=== PATIENT | male | born 1925 | race Caucasian/White ===

== ENCOUNTER → 2016-03-17 | Outpatient (CLI) | payer MEDICARE ==
--- NOTE | 2016-03-17 14:24 | CT ---
EXAMINATION TYPE: CT abdomen pelvis wo con DATE OF EXAM: 03/17/2016 2:08 PM COMPARISON: 01/02/2016 HISTORY: Patient has no complaints at time of study. Follow up study for known pancreatic CA. CT DLP: 384.7 mGycm FINDINGS: LUNG BASES: Moderate right-sided pleural effusion with small left-sided pleural effusion. Groundglass basilar infiltrates. LIVER/GB: Gallbladder hydrops noted measuring 9.3 cm in greatest dimension. No space-occupying hepati c lesion. PANCREAS: Pancreatic mass like area in the pancreatic body and measures 3.2 cm. Lack of contrast limi ts evaluation. SPLEEN: No evidence for splenomegaly. No intrasplenic lesions seen. ADRENALS: No adrenal nodules identified. No evidence for thickening. KIDNEYS: No evidence for renal mass. No nephrolithiasis. No hydronephrosis. Thickening of the urinary bladder wall may be related to nondistention. BOWEL: Appendix has a normal appearance. No evidence of bowel obstruction. No inflammatory process. S mall fixed hiatal hernia. Sigmoid diverticulosis and colitis. Lymph nodes: Periportal adenopathy identified 1.9 cm. Abdominal aorta: Atheromatous changes seen. No evidence for aneurysm. Genital organs: Prostate gland calcifications seen. Other: No significant abnormality. IMPRESSION: 1. PANCREATIC BODY MASS IS IDENTIFIED COMPATIBLE WITH PROVIDED HISTORY OF PANCREATIC CARCINOMA. 2. GALLBLADDER HYDROPS. 3. PERIPORTAL ADENOPATHY. 4. BASILAR PLEURAL EFFUSIONS AND ATELECTASIS.
== END | disposition home or self-care (01) ==
LOC: RADCTMAIN 11:23
PROVIDERS: ATTEND Internal Medicine Hematology & Oncology
DX: C25.9 Malignant neoplasm of pancreas, unspecified (principal); K86.89 Other specified diseases of pancreas; K82.1 Hydrops of gallbladder; R59.0 Localized enlarged lymph nodes
CPT/HCPCS: 36415; 74176; 82565; 84520

== ENCOUNTER 2016-03-19 15:47 | Inpatient (IN) | payer MEDICARE ==
--- NOTE | 2016-03-19 18:57 | ED ---
General Adult HPI - General Source: patient, family, RN notes reviewed Mode of arrival: wheelchair Limitations: physical limitation <Satish Wilkinson - Last Filed: 03/19/16 21:06> <Soto Grant - Last Filed: 03/19/16 21:19> - General Chief complaint: Fall Stated complaint: Fall 1 wk ago Time Seen by Provider: 03/19/16 18:40 - History of Present Illness Initial comments: 89-year-old male presents emergency Department chief complaint weakness. Patient states that he fell out of a chair one week ago and which she is on a swivel chair fell onto his side and back region. He does complain of back pain in his mid to low back region. Patient denies any bowel bladder incontinence or retention. Patient states that he has not had any x-rays for this. He states he comes today because his had increased weakness and lower extremity swelling. Patient states he is having a large rock difficulty ambulating with denies any chest pain or increased shortness breath this time. Patient's Lasix has been cut in half secondary to elevated renal function. Patient states that he was taken 80 mg of Lasix twice daily and states is down to 40 mg once daily and has noticed extreme swelling to his lower extremities. Patient states he hadn't NE at [facility] of last year. states he sees Dr. llanos cardiology. Patient denies any headache, head injury or any LOC. Patient has no abdominal pain including nausea vomiting. (Satish Wilkinson) - Related Data Home Medications Medication Instructions Recorded Confirmed Atenolol [Tenormin] 25 mg PO BID 05/18/15 03/19/16 Atorvastatin [Lipitor] 10 mg PO HS 05/18/15 03/19/16 Donepezil [Aricept] 5 mg PO HS 05/18/15 03/19/16 L.acidoph,Paracasei, B.lactis 1 cap PO DAILY 05/18/15 03/19/16 [Probiotic] Montelukast Sodium [Singulair] 10 mg PO DAILY 05/18/15 03/19/16 Aspirin [Adult Low Dose Aspirin EC] 81 mg PO DAILY 03/19/16 03/19/16 Esomeprazole Magnesium [NexIUM] 20 mg PO DAILY 03/19/16 03/19/16 Furosemide [Lasix] 40 mg PO DAILY 03/19/16 03/19/16 Isosorbide Mononitrate ER [Imdur] 30 mg PO DAILY 03/19/16 03/19/16 Loratadine [Claritin] 10 mg PO DAILY 03/19/16 03/19/16 Multivitamin [Multivitamins Adult 2 tab PO DAILY 03/19/16 03/19/16 Gummies] Potassium Chloride [Klor-Con 20] 20 meq PO BID 03/19/16 03/19/16 Allergies Allergy/AdvReac Type Severity Reaction Status Date / Time acetaminophen [From Tylenol] Allergy Unknown Verified 03/19/16 19:13 Milk Containing Products Allergy Dyspnea,jose Verified 03/19/16 19:13 [Dairy] rrhea nut - unspecified Allergy Unknown Verified 03/19/16 19:13 peanut Allergy Dyspnea Verified 03/19/16 19:13 tomato Allergy Unknown Verified 03/19/16 19:13 seeds Allergy Unknown Uncoded 03/19/16 16:22 Review of Systems ROS Other: All systems not noted in ROS Statement are negative. <Satish Wilkinson - Last Filed: 03/19/16 21:06> ROS Other: All systems not noted in ROS Statement are negative. <Soto Grant - Last Filed: 03/19/16 21:19> ROS Statement: Those systems with pertinent positive or pertinent negative responses have been documented in the HPI. Past Medical History Past Medical History: Eye Disorder, GERD/Reflux, Hyperlipidemia, Hypertension Additional Past Medical History / Comment(s): "continuous stomach for last 2-3 weeks", "persistent heart burn and chest discomfort with certain foods", states "seeing red globs in the toilet with stools",having a weak urine stream,having increased fatigue,diarrhea,wet macular degeneration rt eye,"borderline diabetes " History of Any Multi-Drug Resistant Organisms: None Reported Past Surgical History: Bowel Resection, Joint Replacement Additional Past Surgical History / Comment(s): lt knee replacement Past Anesthesia/Blood Transfusion Reactions: No Reported Reaction Smoking Status: Former smoker Past Alcohol Use History: None Reported Additional Past Alcohol Use History / Comment(s): quit smoking 1977,started smoking 6 <1ppd and pipe Past Drug Use History: None Reported - Past Family History Mother Family Medical History: No Reported History Additional Family Medical History / Comment(s): at 96 Father Additional Family Medical History / Comment(s): at age 80 <CmSatish pandya - Last Filed: 03/19/16 21:06> General Exam Limitations: physical limitation General appearance: alert, in no apparent distress Neck exam: Present: normal inspection, full ROM. Absent: tenderness, meningismus, lymphadenopathy Respiratory exam: Present: normal lung sounds bilaterally. Absent: respiratory distress, wheezes, rales, rhonchi, stridor Cardiovascular Exam: Present: regular rate, normal rhythm, normal heart sounds. Absent: systolic murmur, diastolic murmur, rubs, gallop, clicks GI/Abdominal exam: Present: soft, normal bowel sounds. Absent: distended, tenderness, guarding, rebound, rigid Extremities exam: Present: other (Bilateral lower extremity swelling 3+ pitting edema pulses equal bilaterally patient has equal strength 4/5) Back exam: Present: full ROM, tenderness (Mild tenderness lower thoracic, lumbar region), vertebral tenderness. Absent: paraspinal tenderness Neurological exam: Present: alert, oriented X3, CN II-XII intact, reflexes normal. Absent: motor sensory deficit Skin exam: Present: warm, dry, intact, normal color. Absent: rash <Satish Wilkinson - Last Filed: 03/19/16 21:06> Medical Decision Making - Lab Data Result diagrams: 03/19/16 19:05 03/19/16 19:05 <Satish Wilkinson - Last Filed: 03/19/16 21:06> - Lab Data Result diagrams: 03/19/16 19:05 03/19/16 19:05 <Soto Grant - Last Filed: 03/19/16 21:19> - Medical Decision Making I discussed the case with the patient's attending, Dr. Bose. Patient be admitted to his practice. He recommends IV fluids at 50 per hour. With consultation from jailer chief Dr. Pickard. Labs chest x-ray all current reports were reviewed. Dr. Grant (Soto Grant) - Lab Data Lab Results 03/19/16 03/19/16 03/19/16 Range/Units 19:05 19:05 19:05 WBC 5.4 (3.8-10.6) k/uL RBC 3.31 L (4.30-5.90) m/uL Hgb 11.1 L (13.0-17.5) gm/dL Hct 34.8 L (39.0-53.0) % MCV 105.1 H (80.0-100.0) fL MCH 33.4 (25.0-35.0) pg MCHC 31.8 (31.0-37.0) g/dL RDW 20.8 H (11.5-15.5) % Plt Count 184 (150-450) k/uL Neutrophils % 81 % Lymphocytes % 6 % Monocytes % 9 % Eosinophils % 1 % Basophils % 0 % Neutrophils # 4.4 (1.3-7.7) k/uL Lymphocytes # 0.3 L (1.0-4.8) k/uL Monocytes # 0.5 (0-1.0) k/uL Eosinophils # 0.0 (0-0.7) k/uL Basophils # 0.0 (0-0.2) k/uL Manual Slide Review Performed Polychromasia Present Anisocytosis Moderate Anisocytosis (manual) Present Macrocytosis Marked Sodium 132 L (137-145) mmol/L Potassium 4.9 (3.5-5.1) mmol/L Chloride 100 (98-107) mmol/L Carbon Dioxide 21 L (22-30) mmol/L Anion Gap 11 mmol/L BUN 96 H* (9-20) mg/dL Creatinine 2.20 H (0.66-1.25) mg/dL Est GFR (MDRD) Af Amer 34 (>60 ml/min/1.73 sqM) Est GFR (MDRD) Non-Af 28 (>60 ml/min/1.73 sqM) Glucose 83 (74-99) mg/dL Calcium 8.4 (8.4-10.2) mg/dL Total Bilirubin 1.2 (0.2-1.3) mg/dL AST 49 (17-59) U/L ALT 52 (21-72) U/L Alkaline Phosphatase 63 (38-126) U/L Troponin I (0.000-0.034) ng/mL NT-Pro-B Natriuret Pep 31832 pg/mL Total Protein 5.2 L (6.3-8.2) g/dL Albumin 2.9 L (3.5-5.0) g/dL Urine Color Urine Appearance (Clear) Urine pH (5.0-8.0) Ur Specific [place] (1.001-1.035) Urine Protein (Negative) Urine Glucose (UA) (Negative) Urine Ketones (Negative) Urine Blood (Negative) Urine Nitrate (Negative) Urine Bilirubin (Negative) Urine Urobilinogen (<2.0) mg/dL Ur Leukocyte Esterase (Negative) 03/19/16 03/19/16 Range/Units 19:05 20:25 WBC (3.8-10.6) k/uL RBC (4.30-5.90) m/uL Hgb (13.0-17.5) gm/dL Hct (39.0-53.0) % MCV (80.0-100.0) fL MCH (25.0-35.0) pg MCHC (31.0-37.0) g/dL RDW (11.5-15.5) % Plt Count (150-450) k/uL Neutrophils % % Lymphocytes % % Monocytes % % Eosinophils % % Basophils % % Neutrophils # (1.3-7.7) k/uL Lymphocytes # (1.0-4.8) k/uL Monocytes # (0-1.0) k/uL Eosinophils # (0-0.7) k/uL Basophils # (0-0.2) k/uL Manual Slide Review Polychromasia Anisocytosis Anisocytosis (manual) Macrocytosis Sodium (137-145) mmol/L Potassium (3.5-5.1) mmol/L Chloride (98-107) mmol/L Carbon Dioxide (22-30) mmol/L Anion Gap mmol/L BUN (9-20) mg/dL Creatinine (0.66-1.25) mg/dL Est GFR (MDRD) Af Amer (>60 ml/min/1.73 sqM) Est GFR (MDRD) Non-Af (>60 ml/min/1.73 sqM) Glucose (74-99) mg/dL Calcium (8.4-10.2) mg/dL Total Bilirubin (0.2-1.3) mg/dL AST (17-59) U/L ALT (21-72) U/L Alkaline Phosphatase (38-126) U/L Troponin I 0.021 (0.000-0.034) ng/mL NT-Pro-B Natriuret Pep pg/mL Total Protein (6.3-8.2) g/dL Albumin (3.5-5.0) g/dL Urine Color Yellow Urine Appearance Clear (Clear) Urine pH 5.0 (5.0-8.0) Ur Specific [place] 1.011 (1.001-1.035) Urine Protein Trace H (Negative) Urine Glucose (UA) Negative (Negative) Urine Ketones Trace H (Negative) Urine Blood Negative (Negative) Urine Nitrate Negative (Negative) Urine Bilirubin Negative (Negative) Urine Urobilinogen 2.0 (<2.0) mg/dL Ur Leukocyte Esterase Negative (Negative) Disposition <Satish Wilkinson - Last Filed: 03/19/16 21:06> <Soto Grant - Last Filed: 03/19/16 21:19> Clinical Impression: CHF exacerbation, Bilateral lower extremity edema, Dehydration, Pancreatic cancer, Pleural effusion Disposition: ADMITTED IP TO THIS [facility] Condition: Stable Referrals: Shawna Maza MD [Primary Care Provider] - 1-2 days Addendum entered and electronically signed by Satish Wilkinson PAC 03/19/16 21:12 : EKG performed at 19:19 A. fib left axis deviation rate of 98 QRS duration 96, QT /QTC 340/444 no prior EKG on record though patient reports history of A. fib
[2016-03-19 19:20] LABS: Anisocytosis Moderate; Basophils % (A) 0 %; CH 33.4; CHCM 31.9; Eosinophils % (A) 1 %; HCT 34.8 % (39.0-53.0); HDW 2.54; HGB 11.1 gm/dL (13.0-17.5); Luc # (Auto) 0.18; Luc % (Auto) 3; Lymphocytes # (A) 0.3 k/uL (1.0-4.8); Lymphocytes % (A) 6 %; MCH 33.4 pg (25.0-35.0); MCHC 31.8 g/dL (31.0-37.0); MCV 105.1 fL (80.0-100.0); Macrocytosis Marked; Mean Platelet Volume 8.1; Monocytes # (A) 0.5 k/uL (0-1.0); Monocytes % (A) 9 %; Neutrophils # (A) 4.4 k/uL (1.3-7.7); Neutrophils % (A) 81 %; RBC 3.31 m/uL (4.30-5.90); RDW 20.8 % (11.5-15.5); WBC 5.4 k/uL (3.8-10.6)
[2016-03-19 19:35] LABS: Calcium 8.4 mg/dL (8.4-10.2); Potassium 4.9 mmol/L (3.5-5.1); Total Bilirubin 1.2 mg/dL (0.2-1.3); Total Protein 5.2 g/dL (6.3-8.2)
[2016-03-19 19:38] LABS: Polychromasia Present
[2016-03-19 19:39] LABS: Manual Review Performed
--- NOTE | 2016-03-19 20:20 | XR ---
EXAMINATION TYPE: XR chest 2V DATE OF EXAM: 03/19/2016 8:12 PM COMPARISON: NONE HISTORY: Back pain TECHNIQUE: Frontal and lateral views of the chest are obtained. FINDINGS: Heart is enlarged. There is pulmonary vascular congestion. There is blunting of costophren ic angles. Thoracic aorta is atheromatous. IMPRESSION: Congestive heart failure with bilateral pleural effusions. Right lower lobe pneumonia ca nnot be excluded.
--- NOTE | 2016-03-19 20:23 | XR ---
EXAMINATION TYPE: XR lumbar spine 2 or 3V DATE OF EXAM: 03/19/2016 8:12 PM COMPARISON: NONE HISTORY: Back pain TECHNIQUE: 3 views FINDINGS: There is a slight dextroscoliosis. There is a 25% compression deformity of L1 vertebral body. The po sterior elements appear intact. Sacroiliac joints are normal. There is degenerative spurring of the e ndplates. Abdominal aorta is atheromatous. Conclusion L1 compression fracture of uncertain age. Spondylotic changes. Fractures unchanged compared to 2015 CT scan.
--- NOTE | 2016-03-19 20:43 | XR ---
EXAMINATION TYPE: XR thoracic spine 2V DATE OF EXAM: 03/19/2016 8:32 PM COMPARISON: NONE HISTORY: Back pain TECHNIQUE: 3 views FINDINGS: The thoracic vertebra have normal alignment. I see no compression fracture. There is no def inite paraspinal mass. There is right pleural effusion noted. Posterior elements are intact. There ar e spondylotic changes. IMPRESSION: No fracture. Right pleural effusion. There is possible pneumonic consolidation at the rig ht cardiac border.
[2016-03-19 21:03] LABS: Appearance,Urine Clear (Clear); Bilirubin,Urine Negative (Negative); Glucose,Urine (UA) Negative (Negative); Ketones,Urine Trace (Negative); Leukocyte Esterase,Urine Negative (Negative); Nitrite,Urine Negative (Negative); Protein,Urine Trace (Negative); Specific Gravity,Urine 1.011 (1.001-1.035); UA Billing (MACRO vs. MICRO) CHEM
[2016-03-19] MEDS ORDERED: SODIUM CHLORIDE 0.9% 1,000 ML IV SCH (21:15)
[2016-03-20] MEDS ORDERED: PROCHLORPERAZINE 10 MG TAB PO PRN (01:25)
[2016-03-20] MEDS ORDERED: ATENOLOL 25 MG TAB PO SCH (09:00)
[2016-03-20] MEDS: ASPIRIN 81 MG CHEW PO SCH (09:07)
[2016-03-20] MEDS: MONTELUKAST 10 MG TAB PO SCH (09:08)
[2016-03-20] MEDS: PANTOPRAZOLE 40 MG TABLET PO SCH (09:08)
[2016-03-20] MEDS: ISOSORBIDE MONONITRATE ER 30 MG TAB.ER.24H PO SCH (09:08)
[2016-03-20] MEDS ORDERED: POTASSIUM CHLORIDE ER 20 MEQ TAB.ER PO SCH (11:15)
[2016-03-20] MEDS ORDERED: FUROSEMIDE 40 MG TAB PO SCH (11:15)
[2016-03-20] MEDS ORDERED: ATENOLOL 12.5 MG TAB PO SCH (13:15)
--- NOTE | 2016-03-20 14:44 | CONS ---
DATE OF CONSULTATION: 03/20/2016 Reason for consult is renal failure. HISTORY OF PRESENT ILLNESS: This is an 89-year-old white male who was admitted to the hospital with complaints of weakness. He has also had some back pain. He stated he was having increased lower extremity edema. Serum creatinine is noted to be 2.2 mg/dL on admission. Prior creatinine was as low as 1.3 in October and 1.5 in December of 2015. Blood pressure has been on the lower side with systolic at about 109 mmHg. Patient denies the use of any nonsteroidal anti-inflammatory agents at home and his home medications do not use any FLO inhibitors. PAST MEDICAL HISTORY: Gastroesophageal reflux disease, hyperlipidemia, hypertension, macular degeneration, osteoarthritis. PAST SURGICAL HISTORY: Left knee arthroplasty, bowel resection. Social history is patient is an ex-smoker. No history of drug abuse or alcohol abuse. REVIEW OF SYSTEMS: As per HPI. Other systems negative. Medications at home included potassium, Claritin, Imdur, Lasix, Nexium, Singulair, probiotics, Aricept, Lipitor, Tenormin. On examination, patient is currently comfortable, awake, he is not in any acute distress. Blood pressure is 107/69, heart rate 96 per minute. Patient is afebrile. Examination of the heart, S1 and S2. Examination of the lungs, bilateral breath sounds are heard. Abdomen is soft, nontender. Examination of lower extremities shows edema 1+ bilaterally. Labs show sodium 132, potassium 4.9, BUN 96, serum creatinine 2.2. Hemoglobin 11.1 g/dL. UA shows trace protein and trace ketones. No blood is noted. Chest x-ray showed evidence of CHF. ASSESSMENT: 1. Renal failure which appears to be acute on top of chronic, most likely associated with some degree of hypoperfusion, as blood pressure has been on the lower side. Patient is maintained on Tenormin at home and I will decrease the dose from 25 b.i.d. to 12.5 once a day. UA is quite benign and I will hold off on an ultrasound of the kidney as patient did have a CT of the abdomen on 03/17/2016, which did not show any abnormalities in the kidneys. A pancreatic mass was noted on the CAT scan. 2. Chronic kidney disease, most likely secondary to nephrosclerosis, NKF stage III, with baseline creatinine about 1.3 mg/dL. 3. Pancreatic mass with history of pancreatic cancer. PLAN: Hep-Lock IV fluids and will continue with the oral Lasix. I will give one dose of IV Lasix today and repeat labs in a.m. Thank you for this consultation. Will continue to follow the patient with you during his hospitalization.
[2016-03-20] MEDS ORDERED: IPRATROPIUM-ALBUTEROL 3 ML NEB INHALATION PRN (15:06)
--- NOTE | 2016-03-20 18:37 | P.HPIM ---
History of Present Illness H&P Date: 03/20/16 Chief Complaint: Acute systolic heart failure/acute kidney injury. This is an 89-year-old male one of my patient with a previous medical history significant for hypertension and hypertensive cardio vascular disease, hyperkalemia, history of prostate cancer in the past, that was diagnosed a few years back underwent radiation therapy at [facility], has been in remission and was recently diagnosed on June 2015 of having locally advanced pancreatic cancer that has been under the care of Dr. Beavers for which she did receive about 7 cycles of Gemzar, patient was recently hospitalized at [facility] because of chest pain and increased shortness breath he was diagnosed with non-ST elevation MS and paroxysmal atrial fibrillation, at that time he was placed on atenolol 25 mg orally twice every day as well as aspirin and he was placed on heparin drip and the patient prognosis is poor so he did not go for any invasive procedure due to his advanced pancreatic cancer. Patient was discharged and he followed up with Dr. Celis as a matter of fact today and the patient ended up coming to the emergency department because of increased weakness in both lower x-rays and increased shortness of breath, patient had a chest x-ray in the ER that showed congestive heart failure and he does appear to have a significant acute kidney injury and top of chronic kidney disease and the patient legs were +4 pitting edema. Patient was admitted to the hospital initially was placed on the normal saline at 50 mL an hour for few hours and subsequently was taken off that and he was placed on Lasix 40 mg orally once every day he will also was started on Lasix 40 mg IV push 1 and a nephrology consultation as well as hematology oncology consultation was obtained. Review of Systems Constitutional: Reports anorexia, Reports fatigue, Reports lethargy, Reports malaise, Reports night sweats, Reports poor appetite, Reports weakness, Reports weight loss Eyes: bilateral blurred vision Ears: bilateral: decreased hearing Ears, nose, mouth and throat: Denies dysphagia, Denies neck lump, Denies swelling in throat, Denies sore throat Cardiovascular: Reports decreased exercise tolerance, Reports dyspnea on exertion, Reports edema, Reports high blood pressure, Reports irregular heart beat, Reports orthopnea, Reports paroxysmal nocturnal dyspnea, Reports shortness of breath, Denies chest pain Respiratory: Reports congestion, Reports cough with sputum, Reports dyspnea, Reports wheezing, Denies sleep apnea, Denies snoring Gastrointestinal: Reports bloating, Reports diarrhea, Reports heartburn, Reports indigestion, Reports nausea, Denies abdominal pain, Denies BRBPR, Denies change in bowel habits, Denies vomiting Genitourinary: Reports nocturia, Reports polyuria, Denies dysuria Musculoskeletal: Reports gait dysfunction, Reports low back pain, Denies myalgias Musculoskeletal: bilateral: ankle swelling, absent: ankle pain, ankle stiffness , elbow pain, elbow stiffness, elbow swelling, foot pain, foot stiffness, foot swelling, hand pain, hand stiffness, hand swelling, hip pain, hip stiffness, hip swelling, knee pain, knee stiffness, knee swelling, shoulder pain, shoulder stiffness, shoulder swelling, wrist pain, wrist stiffness, wrist swelling Integumentary: Denies pruritus, Denies rash Neurological: Denies numbness, Denies weakness Psychiatric: Denies anxiety, Denies depression Endocrine: Denies fatigue, Denies weight change Past Medical History Past Medical History: Atrial Fibrillation, Coronary Artery Disease (CAD), Cancer , Heart Failure, Dementia, Diabetes Mellitus, Eye Disorder, GERD/Reflux, Hyperlipidemia, Hypertension, Memory Impairment, Myocardial Infarction (MS), Musculoskeletal Disorder, Osteoarthritis (OA), Prostate Disorder, Renal Disease (Chronic kidney disease stage II.) Additional Past Medical History / Comment(s): "continuous stomach for last 2-3 weeks", "persistent heart burn and chest discomfort with certain foods", states "seeing red globs in the toilet with stools",having a weak urine stream,having increased fatigue,diarrhea,wet macular degeneration rt eye,"borderline diabetes ". pancreatic CA (last chemo 03/13/2016), prostate CA 09/2012(radiation), vascular dementia Last Myocardial Infarction Date:: 01/11/2016 History of Any Multi-Drug Resistant Organisms: None Reported Past Surgical History: Bowel Resection, Joint Replacement Additional Past Surgical History / Comment(s): lt knee replacement, bilat cataracts, TURP-1994, prostate radiation, small bowel obstruction with exploratory laparotomy and lysis of adhesion. Past Anesthesia/Blood Transfusion Reactions: No Reported Reaction Past Psychological History: Anxiety, Depression Smoking Status: Former smoker (Patient used to smoke about a pack every day for about 35 years and he quit in 1981, he drinks occasionally he denies any drug use or abuse. He is lives by himself and his from liver cancer.) Past Alcohol Use History: None Reported Additional Past Alcohol Use History / Comment(s): quit smoking 1977,started smoking 1946 <1ppd and pipe Past Drug Use History: None Reported - Past Family History Mother Family Medical History: Osteoarthritis (OA) (Mother at age 98 from old age. ) Additional Family Medical History / Comment(s): cataracts. at 98 Father Family Medical History: Congestive Heart Failure (CHF) (Father at age of 82 from congestive heart failure.), CVA/TIA Additional Family Medical History / Comment(s): at age 80 Brother(s) Family Medical History: Congestive Heart Failure (CHF), COPD (Patient had 5 brothers one from congestive heart failure, the other one from COPD, the third one at the age of 92 from old age, the fourth 1 from congestive heart failure at the age of 83-1/4 brother from old age.) Sister(s) Family Medical History: No Reported History (Patient had 2 sisters one of them is alive and 93-year-old and the other one in [place] at the age of 80) Daughter(s) Family Medical History: No Reported History (Patient had 2 daughters one of them early due to suicidal attempt and had 2 kids the other one living and well.) Medications and Allergies Home Medications Medication Instructions Recorded Confirmed Type Atenolol [Tenormin] 25 mg PO BID 05/18/15 03/19/16 History Atorvastatin [Lipitor] 10 mg PO HS 05/18/15 03/19/16 History Donepezil [Aricept] 5 mg PO HS 05/18/15 03/19/16 History L.acidoph,Paracasei, B.lactis 1 cap PO DAILY 05/18/15 03/19/16 History [Probiotic] Montelukast Sodium [Singulair] 10 mg PO DAILY 05/18/15 03/19/16 History Aspirin [Adult Low Dose Aspirin EC] 81 mg PO DAILY 03/19/16 03/19/16 History Esomeprazole Magnesium [NexIUM] 20 mg PO DAILY 03/19/16 03/19/16 History Furosemide [Lasix] 40 mg PO DAILY 03/19/16 03/19/16 History Isosorbide Mononitrate ER [Imdur] 30 mg PO DAILY 03/19/16 03/19/16 History Loratadine [Claritin] 10 mg PO DAILY 03/19/16 03/19/16 History Multivitamin [Multivitamins Adult 2 tab PO DAILY 03/19/16 03/19/16 History Gummies] Potassium Chloride [Klor-Con 20] 20 meq PO BID 03/19/16 03/19/16 History Allergies Allergy/AdvReac Type Severity Reaction Status Date / Time acetaminophen [From Tylenol] Allergy Unknown Verified 03/19/16 19:13 Milk Containing Products Allergy Dyspnea,jose Verified 03/19/16 19:13 [Dairy] rrhea nut - unspecified Allergy Unknown Verified 03/19/16 19:13 peanut Allergy Dyspnea Verified 03/19/16 19:13 tomato Allergy Unknown Verified 03/19/16 19:13 seeds Allergy Unknown Uncoded 03/19/16 16:22 Physical Exam Vitals: Vital Signs Temp Pulse Pulse Resp BP BP Pulse Ox 03/20/16 17:05 97.8 F 112 H 18 116/69 97 03/20/16 11:55 96.9 F L 57 L 18 119/59 97 03/20/16 08:40 97.1 F L 96 18 124/64 94 L 03/20/16 03:46 96.9 F L 76 16 107/69 96 03/20/16 00:00 97.9 F 110 H 16 109/69 97 03/19/16 22:41 91 16 121/80 100 03/19/16 22:16 96.6 F L 102 H 18 105/67 98 Intake and Output 03/20/16 03/20/16 03/20/16 06:59 14:59 22:59 Intake Total 100 780 Output Total 110 300 300 Balance -10 480 -300 Intake: IV 100 300 Sodium Chloride 0.9% 1, 100 300 000 ml @ 50 mls/hr IV . Q20H [facility] Rx#:[id number] Oral 480 Output: Urine 110 300 300 Other: Voiding Method Urinal Urinal Urinal # Bowel Movements 1 1 Weight 91.3 kg 91.3 kg Patient Weight 03/21/16 06:59 Weight 91.3 kg - Constitutional General appearance: average body habitus, mild distress - EENT Eyes: anicteric sclerae, PERRLA, no ptosis, no scleral icterus, normal appearance ENT: hard of hearing, normal oropharynx, no thrush Ears: bilateral: normal - Neck Neck: no lymphadenopathy, normal ROM, no rigidity, no stridor, no thyromegaly Carotids: bilateral: upstroke delayed Thyroid: bilateral: normal size - Respiratory Respiratory: bilateral: diminished, rales, rhonchi, wheezing, prolonged expiration, negative: dullness - Cardiovascular Rhythm: irregularly irregular Heart sounds: normal: S1, S2 Abnormal Heart Sounds: systolic murmur, no rub, no click - Gastrointestinal General gastrointestinal: normal bowel sounds, soft, no splenomegaly, tenderness , no umbilical hernia, no ventral hernia - Genitourinary Male genitourinary: scrotal edema - Integumentary Integumentary: normal, normal turgor, pale - Musculoskeletal Musculoskeletal: generalized weakness, strength equal bilaterally - Psychiatric Psychiatric: A&O x's 3, appropriate affect, intact judgment & insight Results CBC & Chem 7: 03/19/16 19:05 03/19/16 19:05 Thrombosis Risk Factor Assmnt - DVT/VTE Prophylaxis DVT/VTE Prophylaxis: Pharmacologic Prophylaxis ordered, Mechanical Prophylaxis ordered - Choose All That Apply Any of the Below Risk Factors Present?: Yes Each Factor Represents 1 point: Medical pt on bed rest, Obesity (BMI >25) Other Risk Factors: Yes Each Risk Factor Represents 3 Points: Age 75 years or older Thrombosis Risk Factor Assessment Total Risk Factor Score: 5 Thrombosis Risk Factor Assessment Level: High Risk Assessment and Plan Plan: Assessment and plan: 1. Acute systolic/diastolic heart failure. Continue patient on atenolol 25 mg orally once every day, start the patient on Lasix 40 mg orally once every day, monitor the patient input and output and daily weight. 2. Acute kidney injury and top of chronic kidney disease stage III. Monitor the patient CMP, magnesium, phosphorus, patient could not tolerate IV fluid because of significant diastolic and systolic heart failure, nephrology consultation was obtained. 3. Paroxysmal atrial fibrillation. Continue atenolol 25 mg orally twice every day, continue aspirin 81 mg orally once every day, patient is not a candidate for anticoagulation because of the risk of bleeding. 4. History of locally advanced pancreatic cancer post 7 cycles of Gemzar, last chemotherapy was in March [address] Beavers. 5. History of prostate cancer post radiation. Currently in remission. 6. GERD with esophagitis. Continue Nexium 40 mg orally once every day. 7. Bilateral lower extremity edema secondary to combination of systolic and diastolic heart failure along with protein calorie malnutrition and worsening renal failure. Continue Louis wrap, continue Lasix 40 mg orally once every day. 8. Vitamin D deficiency. Continue vitamin D supplement. 9. Osteoarthritis. Stable. 10. DVT prophylaxis. Heparin 5000 units subcutaneously every 12 hours. 11. GI prophylaxis. Continue Nexium 40 mg orally once every day. 12. ALLERGIC rhinitis. Continue Singulair 10 mg orally at bedtime. 13. Patient is DO NOT RESUSCITATE. 14. older worker specialist consult, physical therapy consult, patient will need to be placed at [facility].
[2016-03-20] MEDS: ATORVASTATIN 10 MG TAB PO SCH (19:52)
[2016-03-20] MEDS: DONEPEZIL 5 MG TAB PO SCH (19:52)
[2016-03-20] MEDS: IPRATROPIUM-ALBUTEROL 3 ML NEB INHALATION SCH (21:04)
[2016-03-20] MEDS: BUDESONIDE 0.5 MG/2 ML NEBU INHALATION SCH (21:04)
[2016-03-21 06:28] LABS: Anisocytosis Moderate; CH 33.3; CHCM 32.1; HCT 31.1 % (39.0-53.0); HDW 2.61; HGB 9.9 gm/dL (13.0-17.5); MCH 33.1 pg (25.0-35.0); MCHC 31.7 g/dL (31.0-37.0); MCV 104.4 fL (80.0-100.0); Macrocytosis Marked; Mean Platelet Volume 8.7; RBC 2.98 m/uL (4.30-5.90); RDW 20.8 % (11.5-15.5)
[2016-03-21 06:32] LABS: WBC 1.7 k/uL (3.8-10.6)
[2016-03-21 06:41] LABS: Calcium 8.3 mg/dL (8.4-10.2); Potassium 4.7 mmol/L (3.5-5.1)
[2016-03-21] MEDS: IPRATROPIUM-ALBUTEROL 3 ML NEB INHALATION SCH ×3 (07:40→19:49)
[2016-03-21] MEDS: BUDESONIDE 0.5 MG/2 ML NEBU INHALATION SCH ×2 (07:40→19:49)
[2016-03-21] MEDS: ISOSORBIDE MONONITRATE ER 30 MG TAB.ER.24H PO SCH (08:39)
[2016-03-21] MEDS: ASPIRIN 81 MG CHEW PO SCH (08:39)
[2016-03-21] MEDS: LACTOBACILLUS ACIDOPH & BULGAR 1 EACH PACKET PO SCH (08:39)
[2016-03-21] MEDS: PANTOPRAZOLE 40 MG TABLET PO SCH (08:40)
[2016-03-21] MEDS: MONTELUKAST 10 MG TAB PO SCH (08:40)
[2016-03-21] MEDS: POTASSIUM CHLORIDE ER 20 MEQ TAB.ER PO SCH (08:40)
[2016-03-21] MEDS ORDERED: FUROSEMIDE 40 MG TAB PO SCH (09:00)
[2016-03-21] MEDS ORDERED: ATENOLOL 12.5 MG TAB PO SCH (09:00)
--- NOTE | 2016-03-21 09:40 | XR ---
EXAMINATION TYPE: XR chest 1V DATE OF EXAM: 03/21/2016 9:33 AM CLINICAL HISTORY: Difficulty breathing and CHF progress study. TECHNIQUE: Single AP portable upright view of the chest is obtained. COMPARISON: Chest x-ray from [address] abdomen and pelvis from 4 days earlier. FINDINGS: There is persistent cardiomegaly with moderate to severe right atrial enlargement and card iac shift to right of midline all redemonstrated. Atherosclerotic thoracic aorta is again seen. There is persistent small right pleural effusion and associated right basilar atelectasis and/or infiltrat e. Cannot exclude residual tiny left pleural effusion. Upper lungs are clear without pneumothorax. Os seous structures are demineralized. IMPRESSION: Overall stable findings, cardiomegaly with small presumed right greater than left pleur al effusions and mild central vascular congestion suggesting CHF exacerbation. Additional focal infil trate and/or atelectasis is felt present in the right lung base. No significant change from prior [facility] st x-ray.
[2016-03-21] MEDS ORDERED: FUROSEMIDE 10 MG/ML 4 ML VIAL IV STA (10:22)
--- NOTE | 2016-03-21 11:19 | PN ---
The patient is seen for followup for acute kidney injury. He was admitted to the hospital with lower extremity edema and cellulitis. His blood pressure had been low with systolic around 101 to 109 mmHg. Medications were decreased yesterday. His creatinine remains at 2.2, which was the same as on admission. Previously he has been at about 1.58 on 01/02/2016 and 2.1 on 01/24/2016. Patient is maintained on oral Lasix. His chest x-ray did show evidence of pulmonary vascular congestion. He is voiding in a urinal and 24 hour urine output was 1.3L. On examination today, blood pressure is 130/70, heart rate up to 125. The patient is afebrile. EXAMINATION OF THE HEART: S1 and S2. EXAMINATION OF THE LUNGS: Bilateral breath sounds are heard. ABDOMEN: Soft, nontender. Examination of lower extremities shows bilateral extremities are wrapped. There is some erythema noted in the upper extremities bilaterally mainly from the edema. 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 Labs show sodium 133, potassium 4.7, BUN 94, serum creatinine 2.2. Hemoglobin 9.9 g/dL. ASSESSMENT: 1. Acute kidney injury, most likely associated with some degree of hypoperfusion, currently patient is nonoliguric. He has good urine output. He is maintained on oral Lasix. I will give him a dose of IV Lasix today. We will also repeat a chest x-ray and repeat labs in the a.m. 2. Chronic kidney disease with previous creatinine about 1.5 mg/dL in January 2016. UA is fairly unremarkable with trace protein, no blood is noted. 3. Tachycardia . I will increase the Tenormin back to 25 mg b.i.d. as patient's heart rate has increased. Plan is increase Tenormin as patient's heart rate has increased. Check chest x-ray and IV Lasix x1 today.
--- NOTE | 2016-03-21 12:23 | CDI ---
In responding to this query, please exercise your independent professional judgment. The [facility] Coding Staff and Clinical Documentation Specialists appreciate your assistance in clarifying documentation, maintaining compliance with coding guidelines, accurately documenting patients condition and capturing severity of illness. The fact that a question is asked does not imply that any particular answer is desired or expected. Communication forms are a method of clarifying documentation and are not made part of the Legal Health Record. Thank you in advance for your clarification. Last Revision, December 2014 Mar Martin [address] [facility] [place] [address] Documentation Clarification Form Date: 03/21/2016 12:18:00 PM From: Salma Kat Admit Date: 03/19/2016 9:18:00 PM Patient Name: Bright Mccartney Visit Number: [id number] Dr. Shawna Maza and Snow Ferguson NP Protein Calorie Malnutrition has been documented in H&P. History/Risk Factors: CHF CKD stage 3 Advanced Pancreatic Cancer with last chemo on 03/13/2016 Dementia Clinical Indicators: Labs: Protein 5.2, Albumin 2.9 Current BMI: 29.6 Treatment: Dietary Consult In your professional opinion, can you please clarify if these findings signify one of the following conditions? Mild Protein-Calorie Malnutrition Moderate Protein-Calorie Malnutrition Severe Protein-Calorie Malnutrition Other condition, please specify Unable to determine Please document in your progress notes and discharge summary in order to capture severity of illness and risk of mortality. Include clinical findings that support your diagnosis. FYI: Press F11 to launch patient chart. Place X here if this finding has no clinical significance, is not applicable or if you are not able to provide any additional documentation. MTDD
--- NOTE | 2016-03-21 14:32 | P.PN ---
Subjective This is an 89-year-old male one of my patient with a previous medical history significant for hypertension and hypertensive cardio vascular disease, hyperkalemia, history of prostate cancer in the past, that was diagnosed a few years back underwent radiation therapy at [facility], has been in remission and was recently diagnosed on June 2015 of having locally advanced pancreatic cancer that has been under the care of Dr. Beavers for which she did receive about 7 cycles of Gemzar, patient was recently hospitalized at [facility] because of chest pain and increased shortness breath he was diagnosed with non-ST elevation NV and paroxysmal atrial fibrillation, at that time he was placed on atenolol 25 mg orally twice every day as well as aspirin and he was placed on heparin drip and the patient prognosis is poor so he did not go for any invasive procedure due to his advanced pancreatic cancer. Patient was discharged and he followed up with Dr. Celis as a matter of fact today and the patient ended up coming to the emergency department because of increased weakness in both lower x-rays and increased shortness of breath, patient had a chest x-ray in the ER that showed congestive heart failure and he does appear to have a significant acute kidney injury and top of chronic kidney disease and the patient legs were +4 pitting edema. Patient was admitted to the hospital initially was placed on the normal saline at 50 mL an hour for few hours and subsequently was taken off that and he was placed on Lasix 40 mg orally once every day he will also was started on Lasix 40 mg IV push 1 and a nephrology consultation as well as hematology oncology consultation was obtained. 2/3: Repeat labs show a WBC of 1.7, hemoglobin 9.9, platelet count 153. BUN 94 and creatinine 2.2. Sodium 133 and potassium 4.7. Repeat chest x-ray shows overall stable findings of cardiomegaly and small right greater than left pleural effusions and mild central vascular congestion suggesting heart failure exacerbation. Additional focal infiltrate and/or atelectasis is felt present in the right lung base. Patient has been seen by nephrology. IV fluids to saline lock and continue oral Lasix. He did receive one additional dose of IV lasix this morning. We are changing oral lasix to IV. Objective - Vital Signs Vital signs: Vital Signs Temp 97.3 F L 03/21/16 08:30 Pulse 125 H 03/21/16 08:30 Resp 18 03/21/16 08:30 BP 130/70 03/21/16 08:30 Pulse Ox 93 L 03/21/16 08:30 Intake & Output 03/20/16 03/21/16 03/21/16 18:59 06:59 18:59 Intake Total 900 180 Output Total 900 410 Balance 0 -410 180 Weight 91.3 kg 91 kg Intake: IV 300 Sodium Chloride 0.9% 1, 300 000 ml @ 50 mls/hr IV . Q20H [facility] Rx#:[id number] Oral 600 180 Output: Urine 900 410 Other: Voiding Method Urinal Urinal Urinal # Voids 1 # Bowel Movements 0 - Exam General appearance: average body habitus, mild distress - EENT Eyes: anicteric sclerae, PERRLA, no ptosis, no scleral icterus, normal appearance ENT: hard of hearing, normal oropharynx, no thrush Ears: bilateral: normal - Neck Neck: no lymphadenopathy, normal ROM, no rigidity, no stridor, no thyromegaly Carotids: bilateral: upstroke delayed Thyroid: bilateral: normal size - Respiratory Respiratory: bilateral: diminished, rales, rhonchi, wheezing, prolonged expiration, negative: dullness - Cardiovascular Rhythm: irregularly irregular Heart sounds: normal: S1, S2 Abnormal Heart Sounds: systolic murmur, no rub, no click - Gastrointestinal General gastrointestinal: normal bowel sounds, soft, no splenomegaly, tenderness , no umbilical hernia, no ventral hernia - Genitourinary Male genitourinary: scrotal edema - Integumentary Integumentary: normal, normal turgor, pale - Musculoskeletal Musculoskeletal: generalized weakness, strength equal bilaterally - Psychiatric Psychiatric: A&O x's 3, appropriate affect, intact judgment & insight - Labs CBC & Chem 7: 03/21/16 05:44 03/21/16 05:40 Labs: Abnormal Lab Results - Last 24 Hours (Table) 03/21/16 03/21/16 Range/Units 05:40 05:44 WBC 1.7 L* (3.8-10.6) k/uL RBC 2.98 L (4.30-5.90) m/uL Hgb 9.9 L (13.0-17.5) gm/dL Hct 31.1 L (39.0-53.0) % MCV 104.4 H (80.0-100.0) fL RDW 20.8 H (11.5-15.5) % Sodium 133 L (137-145) mmol/L Carbon Dioxide 20 L (22-30) mmol/L BUN 94 H* (9-20) mg/dL Creatinine 2.20 H (0.66-1.25) mg/dL Glucose 100 H (74-99) mg/dL Calcium 8.3 L (8.4-10.2) mg/dL Assessment and Plan Plan: 1. Acute systolic and diastolic heart failure. Continue patient on atenolol 25 mg orally once every day, start the patient on Lasix 40 mg IV twice a day, monitor the patient input and output and daily weight. 2. Acute kidney injury and top of chronic kidney disease stage III. Monitor the patient CMP, magnesium, phosphorus, patient could not tolerate IV fluid because of significant diastolic and systolic heart failure, nephrology consultation was obtained. 3. Paroxysmal atrial fibrillation. Continue atenolol 25 mg orally twice every day, continue aspirin 81 mg orally once every day, patient is not a candidate for anticoagulation because of the risk of bleeding. 4. History of locally advanced pancreatic cancer post 7 cycles of Gemzar, last chemotherapy was in March [address] Beavers. 5. History of prostate cancer post radiation. Currently in remission. 6. GERD with esophagitis. Continue Nexium 40 mg orally once every day. 7. Bilateral lower extremity edema secondary to combination of systolic and diastolic heart failure along with protein calorie malnutrition and worsening renal failure. Continue Louis wrap, continue Lasix 40 mg orally once every day. 8. Vitamin D deficiency. Continue vitamin D supplement. 9. Osteoarthritis. Stable. 10. DVT prophylaxis. Heparin 5000 units subcutaneously every 12 hours. 11. GI prophylaxis. Continue Nexium 40 mg orally once every day. 12. ALLERGIC rhinitis. Continue Singulair 10 mg orally at bedtime. 13. Severe protein calorie malnutrition. Continue Ensure 14. Patient is DO NOT RESUSCITATE. 15. body worker consult, physical therapy consult, patient will need to be placed at [facility] on Thursday. Impression and plan of care have been directed as dictated by the signing physician. Snow Ferguson nurse practitioner acting as scribe for signing physician. Time with Patient: Greater than 30
--- NOTE | 2016-03-21 16:11 | P.CONS ---
History of Present Illness - Reason for Consult Consult date: 03/21/16 in treatment for pancreatic cancer Requesting physician: Snow Ferguson - Chief Complaint SOB - History of Present Illness Mr. Mccartney is a very pleasant 89-year-old male patient of Dr. Nguyễn. He has been seeing Dr. Nguyễn now for almost a year. Patient was seen after he was diagnosed with metastatic pancreatic cancer, full details of that diagnosis I am not sure of. Patient has been treated with Gemzar, 8 cycles day 1 and 8 and most recently 6 cycles once every 21 days. Patient last received treatment on 03/13. Patient was having some difficulty after this last cycle tolerating oral intake so he was provided with some hydration in the office. He did receive hydration for 2 days. Patient had progressive symptoms of shortness of breath, cough and severe bilateral lower extremity swelling preventing him from ambulating, he has been admitted for congestive heart failure. When seen today patient states he is feeling okay, cough is persistent but not progressive with expectoration of small amounts of whitish, frothy phlegm, he states that he ate breakfast and lunch today, states a good appetite today, no nausea or vomiting, he denies any shortness of breath at rest, he has not been up and out of bed too much and is feeling weak, he denies dysuria, diarrhea, his lower extremities were terribly swollen, Louis bandages on the lower extremities is improving the swelling. Review of Systems All systems: negative Constitutional: Reports as per HPI Past Medical History Past Medical History: Atrial Fibrillation, Coronary Artery Disease (CAD), Cancer , Heart Failure, Dementia, Diabetes Mellitus, Eye Disorder, GERD/Reflux, Hyperlipidemia, Hypertension, Memory Impairment, Myocardial Infarction (MD), Musculoskeletal Disorder, Osteoarthritis (OA), Prostate Disorder, Renal Disease (Chronic kidney disease stage II.) Additional Past Medical History / Comment(s): "continuous stomach for last 2-3 weeks", "persistent heart burn and chest discomfort with certain foods", states "seeing red globs in the toilet with stools",having a weak urine stream,having increased fatigue,diarrhea,wet macular degeneration rt eye,"borderline diabetes ". pancreatic CA (last chemo 03/13/2016), prostate CA 09/2012(radiation), vascular dementia Last Myocardial Infarction Date:: 01/11/2016 History of Any Multi-Drug Resistant Organisms: None Reported Past Surgical History: Bowel Resection, Joint Replacement Additional Past Surgical History / Comment(s): lt knee replacement, bilat cataracts, TURP-1994, prostate radiation, small bowel obstruction with exploratory laparotomy and lysis of adhesion. Past Anesthesia/Blood Transfusion Reactions: No Reported Reaction Past Psychological History: Anxiety, Depression Smoking Status: Former smoker (Patient used to smoke about a pack every day for about 35 years and he quit in 1981, he drinks occasionally he denies any drug use or abuse. He is lives by himself and his from liver cancer.) Past Alcohol Use History: None Reported Additional Past Alcohol Use History / Comment(s): quit smoking 1977,started smoking 1945 <1ppd and pipe Past Drug Use History: None Reported - Past Family History Mother Family Medical History: Osteoarthritis (OA) (Mother at age 98 from old age. ) Additional Family Medical History / Comment(s): cataracts. at 98 Father Family Medical History: Congestive Heart Failure (CHF) (Father at age of 82 from congestive heart failure.), CVA/TIA Additional Family Medical History / Comment(s): at age 80 Brother(s) Family Medical History: Congestive Heart Failure (CHF), COPD (Patient had 5 brothers one from congestive heart failure, the other one from COPD, the third one at the age of 92 from old age, the fourth 1 from congestive heart failure at the age of 83-1/4 brother from old age.) Sister(s) Family Medical History: No Reported History (Patient had 2 sisters one of them is alive and 93-year-old and the other one in [place] at the age of 80) Daughter(s) Family Medical History: No Reported History (Patient had 2 daughters one of them early due to suicidal attempt and had 2 kids the other one living and well.) Medications and Allergies Home Medications Medication Instructions Recorded Confirmed Type Atenolol [Tenormin] 25 mg PO BID 05/18/15 03/19/16 History Atorvastatin [Lipitor] 10 mg PO HS 05/18/15 03/19/16 History Donepezil [Aricept] 5 mg PO HS 05/18/15 03/19/16 History L.acidoph,Paracasei, B.lactis 1 cap PO DAILY 05/18/15 03/19/16 History [Probiotic] Montelukast Sodium [Singulair] 10 mg PO DAILY 05/18/15 03/19/16 History Aspirin [Adult Low Dose Aspirin EC] 81 mg PO DAILY 03/19/16 03/19/16 History Esomeprazole Magnesium [NexIUM] 20 mg PO DAILY 03/19/16 03/19/16 History Furosemide [Lasix] 40 mg PO DAILY 03/19/16 03/19/16 History Isosorbide Mononitrate ER [Imdur] 30 mg PO DAILY 03/19/16 03/19/16 History Loratadine [Claritin] 10 mg PO DAILY 03/19/16 03/19/16 History Multivitamin [Multivitamins Adult 2 tab PO DAILY 03/19/16 03/19/16 History Gummies] Potassium Chloride [Klor-Con 20] 20 meq PO BID 03/19/16 03/19/16 History Allergies Allergy/AdvReac Type Severity Reaction Status Date / Time acetaminophen [From Tylenol] Allergy Unknown Verified 03/19/16 19:13 nut - unspecified Allergy Unknown Verified 03/19/16 19:13 peanut Allergy Dyspnea Verified 03/19/16 19:13 Physical Exam Vitals: Vital Signs Temp Pulse Pulse Resp BP Pulse Ox 03/21/16 13:48 72 03/21/16 13:34 72 03/21/16 11:20 97.5 F L 110 H 18 103/63 100 03/21/16 08:30 97.3 F L 125 H 18 130/70 93 L 03/21/16 07:59 68 03/21/16 07:40 64 03/21/16 04:00 97 F L 119 H 18 125/68 95 03/21/16 00:00 97 F L 106 H 17 101/66 94 L 03/20/16 21:20 84 03/20/16 21:04 88 03/20/16 19:43 97.1 F L 100 16 108/64 97 03/20/16 17:05 97.8 F 112 H 18 116/69 97 Intake and Output 03/21/16 03/21/16 03/21/16 06:59 14:59 22:59 Intake Total 517 Output Total 410 Balance -410 517 Intake: Oral 517 Output: Urine 410 Other: Voiding Method Urinal Urinal # Voids 1 Weight 91 kg - Constitutional General appearance: average body habitus, cooperative, no acute distress - EENT Eyes: anicteric sclerae ENT: normal oropharynx - Neck Neck: no lymphadenopathy - Respiratory Respiratory: right: diminished, left: rales - Cardiovascular Rhythm: regular Heart sounds: normal: S1, S2 leg Peripheral Edema: bilateral: 4+ (louis wraps) - Gastrointestinal General gastrointestinal: no absent bowel sounds, no decreased bowel sounds, no distended, no hepatomegaly, no hyperactive bowel sounds, normal bowel sounds, no organomegaly, no rigid, no scaphoid, soft, no splenomegaly, no tenderness, no umbilical hernia, no ventral hernia - Integumentary Integumentary: pale - Musculoskeletal Musculoskeletal: generalized weakness - Psychiatric Psychiatric: A&O x's 3, appropriate affect, intact judgment & insight Results CBC & Chem 7: 03/21/16 05:44 03/21/16 05:40 Labs: Abnormal Lab Results - Last 24 Hours (Table) 03/21/16 03/21/16 Range/Units 05:40 05:44 WBC 1.7 L* (3.8-10.6) k/uL RBC 2.98 L (4.30-5.90) m/uL Hgb 9.9 L (13.0-17.5) gm/dL Hct 31.1 L (39.0-53.0) % MCV 104.4 H (80.0-100.0) fL RDW 20.8 H (11.5-15.5) % Sodium 133 L (137-145) mmol/L Carbon Dioxide 20 L (22-30) mmol/L BUN 94 H* (9-20) mg/dL Creatinine 2.20 H (0.66-1.25) mg/dL Glucose 100 H (74-99) mg/dL Calcium 8.3 L (8.4-10.2) mg/dL Comments: skeletal Xray reports reviewed Chest x-ray: report reviewed Assessment and Plan (1) Pancreatic cancer Narrative/Plan: She has been on Gemzar therapy for quite some time now, he has overall tolerated treatment fairly well. Patient is due in the near future for follow- up images, and these can be done when patient is feeling better, CA-19-9 will be ordered, it was 93 at the end of December. He was due for chemotherapy today but I assured him that a delay in treatment is okay and he needs to be feeling better and be seen by Dr. Nguyễn to resume chemotherapy anyway. Status: Acute (2) Bicytopenia Narrative/Plan: Hgb will be monitored, no transfusion today GCSF ordered for leukopenia Labs in AM Status: Acute
[2016-03-21] MEDS: FUROSEMIDE 10 MG/ML 4 ML VIAL IV SCH (17:36)
[2016-03-21] MEDS ORDERED: FILGRASTIM-SNDZ 480 MCG/0.8 ML SYRINGE SQ SCH (18:00)
[2016-03-21] MEDS: DONEPEZIL 5 MG TAB PO SCH (21:21)
[2016-03-21] MEDS: PROMETHAZ-COD 6.25-10 MG/5 ML 5 ML CUP PO PRN (21:21)
[2016-03-21] MEDS: ATORVASTATIN 10 MG TAB PO SCH (21:21)
[2016-03-21] MEDS: ATENOLOL 25 MG TAB PO SCH (21:21)
[2016-03-22] MEDS: FUROSEMIDE 10 MG/ML 4 ML VIAL IV SCH ×2 (06:21→17:26)
[2016-03-22 06:43] LABS: Calcium 8.2 mg/dL (8.4-10.2); Potassium 4.4 mmol/L (3.5-5.1)
[2016-03-22 06:44] LABS: Anisocytosis Moderate; Basophils % (A) 0 %; CH 33.4; CHCM 32.3; Eosinophils # (A) 0.1 k/uL (0-0.7); Eosinophils % (A) 1 %; HCT 31.8 % (39.0-53.0); HDW 2.56; HGB 10.2 gm/dL (13.0-17.5); Luc # (Auto) 0.23; Luc % (Auto) 3; Lymphocytes # (A) 0.2 k/uL (1.0-4.8); Lymphocytes % (A) 3 %; MCH 33.4 pg (25.0-35.0); MCHC 32.2 g/dL (31.0-37.0); MCV 103.9 fL (80.0-100.0); Macrocytosis Marked; Mean Platelet Volume 8.2; Monocytes % (A) 11 %; Neutrophils # (A) 7.5 k/uL (1.3-7.7); Neutrophils % (A) 83 %; RBC 3.06 m/uL (4.30-5.90); WBC 9.1 k/uL (3.8-10.6); WBC (Perox) 9.19
[2016-03-22 07:33] LABS: Polychromasia Present
[2016-03-22] MEDS: IPRATROPIUM-ALBUTEROL 3 ML NEB INHALATION SCH ×3 (08:12→20:31)
[2016-03-22] MEDS: BUDESONIDE 0.5 MG/2 ML NEBU INHALATION SCH ×2 (08:12→20:30)
[2016-03-22] MEDS: PANTOPRAZOLE 40 MG TABLET PO SCH (09:15)
[2016-03-22] MEDS: LACTOBACILLUS ACIDOPH & BULGAR 1 EACH PACKET PO SCH (09:15)
[2016-03-22] MEDS: ASPIRIN 81 MG CHEW PO SCH (09:16)
[2016-03-22] MEDS: MONTELUKAST 10 MG TAB PO SCH (09:16)
[2016-03-22] MEDS: ATENOLOL 25 MG TAB PO SCH ×2 (09:16→20:31)
--- NOTE | 2016-03-22 11:25 | PN ---
The patient is seen for followup for chronic kidney disease and an element of acute kidney injury. He does have lower extremity edema and chest x-ray continues to show some degree of pulmonary vascular congestion. Patient has been maintained on oral Lasix. He was given a dose of IV Lasix yesterday and I agree with increasing his Lasix to 40 mg q.12 hours. Renal function has been fairly stable with creatinine staying at about 2.2 and today down to 2.1 mg/dL. Previous creatinine has been at about 1.58 in December 2015. On examination today, blood pressure is 102/60, heart rate 76 per minute. He is afebrile. EXAMINATION OF THE HEART: S1 and S2. EXAMINATION OF THE LUNGS: Bilateral breath sounds are heard. ABDOMEN: Soft, nontender. Examination of lower extremities shows chronic skin changes with edema noted bilaterally which seems to be decreasing as some wrinkling of the skin is noted. Labs show sodium 133, potassium 4.4, BUN 90, serum creatinine 2.1. Hemoglobin 10.2 g/dL. ASSESSMENT: 1. Acute kidney injury, currently nonoliguric, fairly stable. 2. Chronic kidney disease with baseline around 1.5 to 1.7 mg/dL with fairly unremarkable urine, NKF stage IIIB. 3. Volume overload. Agree with increasing Lasix. PLAN: Continue with increased dose of Lasix and repeat labs in the a.m.
[2016-03-22] MEDS: POTASSIUM CHLORIDE ER 20 MEQ TAB.ER PO SCH (12:43)
[2016-03-22] MEDS: ISOSORBIDE MONONITRATE ER 30 MG TAB.ER.24H PO SCH (12:43)
--- NOTE | 2016-03-22 16:24 | P.PN ---
Subjective This is an 89-year-old male one of my patient with a previous medical history significant for hypertension and hypertensive cardio vascular disease, hyperkalemia, history of prostate cancer in the past, that was diagnosed a few years back underwent radiation therapy at [facility], [place], has been in remission and was recently diagnosed on June 2015 of having locally advanced pancreatic cancer that has been under the care of Dr. Beavers for which she did receive about 7 cycles of Gemzar, patient was recently hospitalized at [facility] [place] because of chest pain and increased shortness breath he was diagnosed with non-ST elevation [place] and paroxysmal atrial fibrillation, at that time he was placed on atenolol 25 mg orally twice every day as well as aspirin and he was placed on heparin drip and the patient prognosis is poor so he did not go for any invasive procedure due to his advanced pancreatic cancer. Patient was discharged and he followed up with Dr. Celis as a matter of fact today and the patient ended up coming to the emergency department because of increased weakness in both lower x-rays and increased shortness of breath, patient had a chest x-ray in the ER that showed congestive heart failure and he does appear to have a significant acute kidney injury and top of chronic kidney disease and the patient legs were +4 pitting edema. Patient was admitted to the hospital initially was placed on the normal saline at 50 mL an hour for few hours and subsequently was taken off that and he was placed on Lasix 40 mg orally once every day he will also was started on Lasix 40 mg IV push 1 and a nephrology consultation as well as hematology oncology consultation was obtained. 2/4: Patient is feeling weak, he continued to to have some coughing minimal phlegm production, he continues to have some swelling in both lower extremities although preoperative 5 however is a bit better from yesterday Objective - Vital Signs Vital signs: Vital Signs Temp 96.9 F L 03/22/16 11:59 Pulse 97 03/22/16 11:59 Resp 20 03/22/16 11:59 BP 100/70 03/22/16 11:59 Pulse Ox 97 03/22/16 11:59 Intake & Output 03/21/16 03/22/16 03/22/16 18:59 06:59 18:59 Intake Total 993 660 120 Output Total 450 350 Balance 993 210 -230 Weight 92 kg Intake: Oral 993 660 120 Output: Urine 450 350 Other: Voiding Method Urinal Urinal Urinal # Voids 1 1 0 # Bowel Movements 0 - Exam - Constitutional General appearance: average body habitus, mild distress - EENT Eyes: anicteric sclerae, PERRLA, no ptosis, no scleral icterus, normal appearance ENT: hard of hearing, normal oropharynx, no thrush Ears: bilateral: normal - Neck Neck: no lymphadenopathy, normal ROM, no rigidity, no stridor, no thyromegaly Carotids: bilateral: upstroke delayed Thyroid: bilateral: normal size - Respiratory Respiratory: bilateral: diminished, rales, rhonchi, wheezing, prolonged expiration, negative: dullness - Cardiovascular Rhythm: irregularly irregular Heart sounds: normal: S1, S2 Abnormal Heart Sounds: systolic murmur, no rub, no click - Gastrointestinal General gastrointestinal: normal bowel sounds, soft, no splenomegaly, tenderness , no umbilical hernia, no ventral hernia - Genitourinary Male genitourinary: scrotal edema - Integumentary Integumentary: normal, normal turgor, pale - Musculoskeletal Musculoskeletal: generalized weakness, strength equal bilaterally - Psychiatric Psychiatric: A&O x's 3, appropriate affect, intact judgment & insight - Labs CBC & Chem 7: 03/22/16 06:00 03/22/16 06:00 Labs: Abnormal Lab Results - Last 24 Hours (Table) 03/22/16 03/22/16 Range/Units 06:00 06:00 RBC 3.06 L (4.30-5.90) m/uL Hgb 10.2 L (13.0-17.5) gm/dL Hct 31.8 L (39.0-53.0) % MCV 103.9 H (80.0-100.0) fL RDW 21.0 H (11.5-15.5) % Plt Count 133 L (150-450) k/uL Lymphocytes # 0.2 L (1.0-4.8) k/uL Sodium 133 L (137-145) mmol/L Carbon Dioxide 20 L (22-30) mmol/L BUN 90 H* (9-20) mg/dL Creatinine 2.11 H (0.66-1.25) mg/dL Glucose 102 H (74-99) mg/dL Calcium 8.2 L (8.4-10.2) mg/dL Assessment and Plan Plan: Assessment and plan: 1. Acute systolic/diastolic heart failure. Continue patient on atenolol 25 mg orally once every day, start the patient on Lasix 40 mg IVP once every 12 hours , monitor the patient input and output and daily weight. 2. Acute kidney injury and top of chronic kidney disease stage III. Monitor the patient CMP, magnesium, phosphorus, patient could not tolerate IV fluid because of significant diastolic and systolic heart failure, nephrology consultation was obtained. 3. Paroxysmal atrial fibrillation. Continue atenolol 25 mg orally twice every day, continue aspirin 81 mg orally once every day, patient is not a candidate for anticoagulation because of the risk of bleeding. 4. History of locally advanced pancreatic cancer post 7 cycles of Gemzar, last chemotherapy was in March [address] Beavers. 5. History of prostate cancer post radiation. Currently in remission. 6. GERD with esophagitis. Continue Nexium 40 mg orally once every day. 7. Bilateral lower extremity edema secondary to combination of systolic and diastolic heart failure along with protein calorie malnutrition and worsening renal failure. Continue Louis wrap, continue Lasix 40 mg orally once every day. 8. Vitamin D deficiency. Continue vitamin D supplement. 9. Osteoarthritis. Stable. 10. DVT prophylaxis. Heparin 5000 units subcutaneously every 12 hours. 11. GI prophylaxis. Continue Nexium 40 mg orally once every day. 12. ALLERGIC rhinitis. Continue Singulair 10 mg orally at bedtime. 13. Patient is DO NOT RESUSCITATE. 14. speeder worker consult, physical therapy consult, patient will need to be placed at [facility]. 15. Leuko-mario chemotherapy induced post G-CSF.
[2016-03-22] MEDS: DONEPEZIL 5 MG TAB PO SCH (20:30)
[2016-03-22] MEDS: ATORVASTATIN 10 MG TAB PO SCH (20:30)
[2016-03-23 06:06] LABS: Anisocytosis Moderate; Basophils % (A) 0 %; CH 33.7; CHCM 32.7; Eosinophils # (A) 0.1 k/uL (0-0.7); Eosinophils % (A) 0 %; HCT 32.5 % (39.0-53.0); HDW 2.67; HGB 10.1 gm/dL (13.0-17.5); Luc # (Auto) 0.33; Luc % (Auto) 2; Lymphocytes # (A) 0.3 k/uL (1.0-4.8); Lymphocytes % (A) 2 %; MCH 32.2 pg (25.0-35.0); MCV 103.8 fL (80.0-100.0); Macrocytosis Marked; Mean Platelet Volume 8.5; Monocytes # (A) 1.8 k/uL (0-1.0); Monocytes % (A) 12 %; Neutrophils # (A) 12.8 k/uL (1.3-7.7); Neutrophils % (A) 84 %; RBC 3.13 m/uL (4.30-5.90); RDW 21.3 % (11.5-15.5); WBC 15.3 k/uL (3.8-10.6); WBC (Perox) 15.52
[2016-03-23 06:09] LABS: Calcium 8.4 mg/dL (8.4-10.2); Magnesium 2.5 mg/dL (1.6-2.3); Potassium 4.5 mmol/L (3.5-5.1); Total Bilirubin 1.4 mg/dL (0.2-1.3); Total Protein 4.8 g/dL (6.3-8.2)
[2016-03-23] MEDS: FUROSEMIDE 10 MG/ML 4 ML VIAL IV SCH ×2 (06:13→17:28)
[2016-03-23 06:48] LABS: Manual Review Performed
[2016-03-23 06:49] LABS: Polychromasia Present
[2016-03-23] MEDS: LACTOBACILLUS ACIDOPH & BULGAR 1 EACH PACKET PO SCH (08:14)
[2016-03-23] MEDS: PANTOPRAZOLE 40 MG TABLET PO SCH (08:15)
[2016-03-23] MEDS: ASPIRIN 81 MG CHEW PO SCH (08:15)
[2016-03-23] MEDS: MONTELUKAST 10 MG TAB PO SCH (08:15)
[2016-03-23] MEDS: ATENOLOL 25 MG TAB PO SCH ×2 (08:15→20:42)
[2016-03-23] MEDS: BUDESONIDE 0.5 MG/2 ML NEBU INHALATION SCH ×2 (08:33→20:15)
[2016-03-23] MEDS: IPRATROPIUM-ALBUTEROL 3 ML NEB INHALATION SCH ×3 (08:33→20:17)
--- NOTE | 2016-03-23 10:04 | P.PN ---
Subjective This is an 89-year-old male one of my patient with a previous medical history significant for hypertension and hypertensive cardio vascular disease, hyperkalemia, history of prostate cancer in the past, that was diagnosed a few years back underwent radiation therapy at [facility], has been in remission and was recently diagnosed on June 2015 of having locally advanced pancreatic cancer that has been under the care of Dr. Beavers for which she did receive about 7 cycles of Gemzar, patient was recently hospitalized at [facility] because of chest pain and increased shortness breath he was diagnosed with non-ST elevation [place] and paroxysmal atrial fibrillation, at that time he was placed on atenolol 25 mg orally twice every day as well as aspirin and he was placed on heparin drip and the patient prognosis is poor so he did not go for any invasive procedure due to his advanced pancreatic cancer. Patient was discharged and he followed up with Dr. Celis as a matter of fact today and the patient ended up coming to the emergency department because of increased weakness in both lower x-rays and increased shortness of breath, patient had a chest x-ray in the ER that showed congestive heart failure and he does appear to have a significant acute kidney injury and top of chronic kidney disease and the patient legs were +4 pitting edema. Patient was admitted to the hospital initially was placed on the normal saline at 50 mL an hour for few hours and subsequently was taken off that and he was placed on Lasix 40 mg orally once every day he will also was started on Lasix 40 mg IV push 1 and a nephrology consultation as well as hematology oncology consultation was obtained. 2: Patient is feeling weak, he continued to to have some coughing minimal phlegm production, he continues to have some swelling in both lower extremities although preoperative 5 however is a bit better from yesterday 2/5: Patient is sitting up in a recliner he continues to be somewhat short of breath, he continues to have some congested cough, he is feeling about the same , no new changes in his treatment we will continue same management. Objective - Vital Signs Vital signs: Vital Signs Temp 97.5 F L 03/23/16 04:00 Pulse 136 H 03/23/16 04:00 Resp 17 03/23/16 04:00 BP 102/61 03/23/16 04:00 Pulse Ox 90 L 03/23/16 04:00 Intake & Output 03/22/16 03/23/16 03/23/16 18:59 06:59 18:59 Intake Total 560 900 Output Total 550 450 Balance 10 450 Weight 92.2 kg Intake: Oral 560 900 Output: Urine 550 450 Other: Voiding Method Urinal Urinal # Voids 1 2 # Bowel Movements 0 1 - Exam - Constitutional General appearance: average body habitus, mild distress - EENT Eyes: anicteric sclerae, PERRLA, no ptosis, no scleral icterus, normal appearance ENT: hard of hearing, normal oropharynx, no thrush Ears: bilateral: normal - Neck Neck: no lymphadenopathy, normal ROM, no rigidity, no stridor, no thyromegaly Carotids: bilateral: upstroke delayed Thyroid: bilateral: normal size - Respiratory Respiratory: bilateral: diminished, rales, rhonchi, wheezing, prolonged expiration, negative: dullness - Cardiovascular Rhythm: irregularly irregular Heart sounds: normal: S1, S2 Abnormal Heart Sounds: systolic murmur, no rub, no click - Gastrointestinal General gastrointestinal: normal bowel sounds, soft, no splenomegaly, tenderness , no umbilical hernia, no ventral hernia - Genitourinary Male genitourinary: scrotal edema - Integumentary Integumentary: normal, normal turgor, pale - Musculoskeletal Musculoskeletal: generalized weakness, strength equal bilaterally - Psychiatric Psychiatric: A&O x's 3, appropriate affect, intact judgment & insight - Labs CBC & Chem 7: 03/23/16 05:35 03/23/16 05:35 Labs: Abnormal Lab Results - Last 24 Hours (Table) 03/22/16 03/23/16 03/23/16 Range/Units 06:00 05:35 05:35 WBC 15.3 H (3.8-10.6) k/uL RBC 3.13 L (4.30-5.90) m/uL Hgb 10.1 L (13.0-17.5) gm/dL Hct 32.5 L (39.0-53.0) % MCV 103.8 H (80.0-100.0) fL RDW 21.3 H (11.5-15.5) % Plt Count 132 L (150-450) k/uL Neutrophils # 12.8 H (1.3-7.7) k/uL Lymphocytes # 0.3 L (1.0-4.8) k/uL Monocytes # 1.8 H (0-1.0) k/uL Sodium 134 L (137-145) mmol/L BUN 87 H* (9-20) mg/dL Creatinine 2.09 H (0.66-1.25) mg/dL Glucose 108 H (74-99) mg/dL Magnesium 2.5 H (1.6-2.3) mg/dL Total Bilirubin 1.4 H (0.2-1.3) mg/dL Total Protein 4.8 L (6.3-8.2) g/dL Albumin 2.5 L (3.5-5.0) g/dL CA 19-9 Antigen 141.3 H (0.0-34.9) U/mL Assessment and Plan Plan: Assessment and plan: 1. Acute systolic/diastolic heart failure. Continue patient on atenolol 25 mg orally once every day, start the patient on Lasix 40 mg IVP once every 12 hours , monitor the patient input and output and daily weight. 2. Acute kidney injury and top of chronic kidney disease stage III. Monitor the patient CMP, magnesium, phosphorus, patient could not tolerate IV fluid because of significant diastolic and systolic heart failure, nephrology consultation was obtained. 3. Paroxysmal atrial fibrillation. Continue atenolol 25 mg orally twice every day, continue aspirin 81 mg orally once every day, patient is not a candidate for anticoagulation because of the risk of bleeding. 4. History of locally advanced pancreatic cancer post 7 cycles of Gemzar, last chemotherapy was in March [address] Beavers. 5. History of prostate cancer post radiation. Currently in remission. 6. GERD with esophagitis. Continue Nexium 40 mg orally once every day. 7. Bilateral lower extremity edema secondary to combination of systolic and diastolic heart failure along with protein calorie malnutrition and worsening renal failure. Continue Louis wrap, continue Lasix 40 mg orally once every day. 8. Vitamin D deficiency. Continue vitamin D supplement. 9. Osteoarthritis. Stable. 10. DVT prophylaxis. Heparin 5000 units subcutaneously every 12 hours. 11. GI prophylaxis. Continue Nexium 40 mg orally once every day. 12. ALLERGIC rhinitis. Continue Singulair 10 mg orally at bedtime. 13. Patient is DO NOT RESUSCITATE. 14. highway worker consult, physical therapy consult, patient will need to be placed at [facility]. 15. Leukopenia. chemotherapy induced post G-CSF. 16. [place] when the patient is better. Hopefully the next few days.
[2016-03-23] MEDS: ISOSORBIDE MONONITRATE ER 30 MG TAB.ER.24H PO SCH (12:58)
[2016-03-23] MEDS: POTASSIUM CHLORIDE ER 20 MEQ TAB.ER PO SCH (12:58)
[2016-03-23] MEDS: DONEPEZIL 5 MG TAB PO SCH (20:42)
[2016-03-23] MEDS: ATORVASTATIN 10 MG TAB PO SCH (20:42)
[2016-03-24 05:44] LABS: Anisocytosis Moderate; CH 33.5; CHCM 31.8; HCT 33.8 % (39.0-53.0); HDW 2.68; HGB 10.1 gm/dL (13.0-17.5); MCH 31.5 pg (25.0-35.0); MCHC 29.7 g/dL (31.0-37.0); MCV 106.1 fL (80.0-100.0); Macrocytosis Marked; Mean Platelet Volume 8.8; RBC 3.19 m/uL (4.30-5.90); RDW 21.6 % (11.5-15.5); WBC (Perox) 15.63
[2016-03-24 05:55] LABS: Calcium 8.4 mg/dL (8.4-10.2); Potassium 4.7 mmol/L (3.5-5.1); Total Bilirubin 1.3 mg/dL (0.2-1.3); Total Protein 4.9 g/dL (6.3-8.2)
[2016-03-24] MEDS: FUROSEMIDE 10 MG/ML 4 ML VIAL IV SCH ×2 (06:10→16:51)
[2016-03-24 06:36] LABS: Add Differential Manual Differential
[2016-03-24 06:39] LABS: Band Neutrophils % 2.5 %; Manual Review Performed; Nucleated Red Blood Cells 4 /100 WBC (0-0); Polychromasia Present; Total Cells Counted 200; WBC 14.7 k/uL (3.8-10.6)
[2016-03-24] MEDS: POTASSIUM CHLORIDE ER 20 MEQ TAB.ER PO SCH (08:01)
[2016-03-24] MEDS: ASPIRIN 81 MG CHEW PO SCH (08:01)
[2016-03-24] MEDS: MONTELUKAST 10 MG TAB PO SCH (08:01)
[2016-03-24] MEDS: ATENOLOL 25 MG TAB PO SCH ×2 (08:01→19:46)
[2016-03-24] MEDS: LACTOBACILLUS ACIDOPH & BULGAR 1 EACH PACKET PO SCH (08:01)
[2016-03-24] MEDS: PANTOPRAZOLE 40 MG TABLET PO SCH (08:01)
[2016-03-24] MEDS: ISOSORBIDE MONONITRATE ER 30 MG TAB.ER.24H PO SCH (08:02)
[2016-03-24] MEDS: IPRATROPIUM-ALBUTEROL 3 ML NEB INHALATION SCH ×3 (08:50→19:40)
[2016-03-24] MEDS: BUDESONIDE 0.5 MG/2 ML NEBU INHALATION SCH ×2 (08:50→19:39)
--- NOTE | 2016-03-24 12:06 | PN ---
Patient is seen for followup for acute kidney injury. He is also being treated for fluid overload, increased lower extremity edema and changes of pulmonary vascular congestion on chest x-ray. Currently he is maintained on Lasix 40 mg q.12 hours. His serum creatinine has been fairly stable at about 2.1 to 2.2 mg/dL. His baseline has been at about 1.5 in December. ASSESSMENT: 1. Chronic kidney disease, NKF stage III secondary to nephrosclerosis with fairly benign UA on 03/19/2016. CAT scan on 03/17/2016 did not reveal any significantly abnormal renal findings. 2. Underlying pancreatic cancer, recently diagnosed, maintained on chemotherapy in the form of Gemzar. 3. Possible cardiomyopathy. PLAN: Continue with IV Lasix, recommend echocardiogram as I do not see one over the last few months.
--- NOTE | 2016-03-24 13:23 | P.PN ---
Subjective This is an 89-year-old male one of Dr. Maza's patient with a previous medical history significant for hypertension and hypertensive cardio vascular disease, hyperkalemia, history of prostate cancer in the past, that was diagnosed a few years back underwent radiation therapy at [facility], has been in remission and was recently diagnosed on June 2015 of having locally advanced pancreatic cancer that has been under the care of Dr. Jimenez for which she did receive about 7 cycles of Gemzar, patient was recently hospitalized at [facility] because of chest pain and increased shortness breath he was diagnosed with non-ST elevation [place] and paroxysmal atrial fibrillation, at that time he was placed on atenolol 25 mg orally twice every day as well as aspirin and he was placed on heparin drip and the patient prognosis is poor so he did not go for any invasive procedure due to his advanced pancreatic cancer. Patient was discharged and he followed up with Dr. Celis as a matter of fact today and the patient ended up coming to the emergency department because of increased weakness in both lower x-rays and increased shortness of breath, patient had a chest x-ray in the ER that showed congestive heart failure and he does appear to have a significant acute kidney injury and top of chronic kidney disease and the patient legs were +4 pitting edema. Patient was admitted to the hospital initially was placed on the normal saline at 50 mL an hour for few hours and subsequently was taken off that and he was placed on Lasix 40 mg orally once every day he will also was started on Lasix 40 mg IV push 1 and a nephrology consultation as well as hematology oncology consultation was obtained. 2/3: Repeat labs show a WBC of 1.7, hemoglobin 9.9, platelet count 153. BUN 94 and creatinine 2.2. Sodium 133 and potassium 4.7. Repeat chest x-ray shows overall stable findings of cardiomegaly and small right greater than left pleural effusions and mild central vascular congestion suggesting heart failure exacerbation. Additional focal infiltrate and/or atelectasis is felt present in the right lung base. Patient has been seen by nephrology. IV fluids to saline lock and continue oral Lasix. He did receive one additional dose of IV lasix this morning. We are changing oral lasix to IV. 2/4: Patient is feeling weak, he continued to to have some coughing minimal phlegm production, he continues to have some swelling in both lower extremities although preoperative 5 however is a bit better from yesterday 03/23: Patient is sitting up in a recliner he continues to be somewhat short of breath, he continues to have some congested cough, he is feeling about the same , no new changes in his treatment we will continue same management. 03/24: WBC count 14.7, BUN 18 creatinine 2.1. CA 19-9 141.3. He is currently on Lasix 40 mg IV every 12 hours. Echocardiogram report pending. patient states his breathing is only a little better. Objective - Vital Signs Vital signs: Vital Signs Temp 97.6 F 03/24/16 03:59 Pulse 100 03/24/16 03:59 Resp 20 03/24/16 03:59 BP 108/66 03/24/16 03:59 Pulse Ox 93 L 03/24/16 03:59 Intake & Output 03/23/16 03/24/16 03/24/16 18:59 06:59 18:59 Intake Total 478 240 Output Total 700 651 Balance -222 -411 Weight 92.2 kg 92.6 kg Intake: Oral 478 240 Output: Urine 700 650 Stool 1 Other: Voiding Method Toilet Toilet Urinal Urinal # Voids 1 # Bowel Movements 1 - Exam General appearance: average body habitus, mild distress - EENT Eyes: anicteric sclerae, PERRLA, no ptosis, no scleral icterus, normal appearance ENT: hard of hearing, normal oropharynx, no thrush Ears: bilateral: normal - Neck Neck: no lymphadenopathy, normal ROM, no rigidity, no stridor, no thyromegaly Carotids: bilateral: upstroke delayed Thyroid: bilateral: normal size - Respiratory Respiratory: bilateral: diminished, rales, rhonchi, wheezing, prolonged expiration, negative: dullness - Cardiovascular Rhythm: irregularly irregular Heart sounds: normal: S1, S2 Abnormal Heart Sounds: systolic murmur, no rub, no click - Gastrointestinal General gastrointestinal: normal bowel sounds, soft, no splenomegaly, tenderness , no umbilical hernia, no ventral hernia - Genitourinary Male genitourinary: scrotal edema - Integumentary Integumentary: normal, normal turgor, pale - Musculoskeletal Musculoskeletal: generalized weakness, strength equal bilaterally - Psychiatric Psychiatric: A&O x's 3, appropriate affect, intact judgment & insight - Labs CBC & Chem 7: 03/24/16 05:08 03/24/16 05:08 Labs: Abnormal Lab Results - Last 24 Hours (Table) 03/24/16 03/24/16 Range/Units 05:08 05:08 WBC 14.7 H (3.8-10.6) k/uL RBC 3.19 L (4.30-5.90) m/uL Hgb 10.1 L (13.0-17.5) gm/dL Hct 33.8 L (39.0-53.0) % MCV 106.1 H (80.0-100.0) fL MCHC 29.7 L (31.0-37.0) g/dL RDW 21.6 H (11.5-15.5) % Plt Count 131 L (150-450) k/uL Neutrophils # (Manual) 13.2 H (1.3-7.7) k/uL Lymphocytes # (Manual) 0.2 L (1.0-4.8) k/uL Nucleated RBCs 4 H (0-0) /100 WBC Sodium 132 L (137-145) mmol/L Carbon Dioxide 20 L (22-30) mmol/L BUN 88 H* (9-20) mg/dL Creatinine 2.10 H (0.66-1.25) mg/dL Glucose 108 H (74-99) mg/dL Total Protein 4.9 L (6.3-8.2) g/dL Albumin 2.7 L (3.5-5.0) g/dL Assessment and Plan Plan: 1. Acute systolic and diastolic heart failure. Continue patient on atenolol 25 mg orally once every day, start the patient on Lasix 40 mg IV twice a day, monitor the patient input and output and daily weight. 2. Acute kidney injury and top of chronic kidney disease stage III. Monitor the patient CMP, magnesium, phosphorus, patient could not tolerate IV fluid because of significant diastolic and systolic heart failure, nephrology consultation was obtained. 3. Paroxysmal atrial fibrillation. Continue atenolol 25 mg orally twice every day, continue aspirin 81 mg orally once every day, patient is not a candidate for anticoagulation because of the risk of bleeding. 4. History of locally advanced pancreatic cancer post 7 cycles of Gemzar, last chemotherapy was in March [address] Beavers. 5. History of prostate cancer post radiation. Currently in remission. 6. GERD with esophagitis. Continue Nexium 40 mg orally once every day. 7. Bilateral lower extremity edema secondary to combination of systolic and diastolic heart failure along with protein calorie malnutrition and worsening renal failure. Continue Louis wrap, continue Lasix 40 mg orally once every day. 8. Vitamin D deficiency. Continue vitamin D supplement. 9. Osteoarthritis. Stable. 10. DVT prophylaxis. Heparin 5000 units subcutaneously every 12 hours. 11. GI prophylaxis. Continue Nexium 40 mg orally once every day. 12. ALLERGIC rhinitis. Continue Singulair 10 mg orally at bedtime. 13. Severe protein calorie malnutrition. Continue Ensure 14. Leukopenia. chemotherapy induced post G-CSF. 15. Patient is DO NOT RESUSCITATE. 16. correction worker consult, physical therapy consult, patient will need to be placed at [facility] this week. Impression and plan of care have been directed as dictated by the signing physician. Snow Ferguson nurse practitioner acting as scribe for signing physician. Time with Patient: Greater than 30
[2016-03-24] MEDS: DONEPEZIL 5 MG TAB PO SCH (19:46)
[2016-03-24] MEDS: ATORVASTATIN 10 MG TAB PO SCH (19:46)
[2016-03-25] MEDS: FUROSEMIDE 10 MG/ML 4 ML VIAL IV SCH ×3 (06:24→23:50)
[2016-03-25 07:13] LABS: Anisocytosis Moderate; Basophils % (A) 0 %; CH 33.8; CHCM 32.3; Eosinophils # (A) 0.1 k/uL (0-0.7); Eosinophils % (A) 0 %; HCT 33.1 % (39.0-53.0); HDW 2.72; HGB 10.2 gm/dL (13.0-17.5); Luc # (Auto) 0.39; Luc % (Auto) 3; Lymphocytes # (A) 0.3 k/uL (1.0-4.8); Lymphocytes % (A) 2 %; MCH 32.5 pg (25.0-35.0); MCHC 30.8 g/dL (31.0-37.0); MCV 105.5 fL (80.0-100.0); Macrocytosis Marked; Monocytes # (A) 1.7 k/uL (0-1.0); Monocytes % (A) 12 %; Neutrophils # (A) 11.3 k/uL (1.3-7.7); Neutrophils % (A) 82 %; RBC 3.13 m/uL (4.30-5.90); RDW 21.9 % (11.5-15.5); WBC 13.7 k/uL (3.8-10.6)
[2016-03-25] MEDS: IPRATROPIUM-ALBUTEROL 3 ML NEB INHALATION SCH ×3 (08:12→19:53)
[2016-03-25] MEDS: BUDESONIDE 0.5 MG/2 ML NEBU INHALATION SCH ×2 (08:12→19:53)
[2016-03-25 09:12] LABS: Calcium 8.4 mg/dL (8.4-10.2); Potassium 4.2 mmol/L (3.5-5.1)
--- NOTE | 2016-03-25 09:55 | ECHOF ---
Referral Reason:chf MEASUREMENTS -------- HEIGHT: 180.3 cm WEIGHT: 92.5 kg BP: Ao Diam: 3.2 cm (2.0 - 3.7) AV Cusp: 2.0 cm (1.5 - 2.6) LA Diam: 5.4 cm (2.7 - 3.8) MV EXCURSION: 10.065 mm (> 18.000) MV EF SLOPE: 32 mm/s (70 - 150) EPSS: 1.2 cm MV E Lobo: 0.81 m/s MV DecT: 308 ms MV A Lobo: 0.70 m/s MV E/A Ratio: 1.16 FINDINGS -------- Sinus rhythm. This was a technically difficult study with suboptimal views. Grossly normal LV size and systolic function. Unable to comment on regional wall motion. The right ventricle is normal in size and function. The left atrium is markedly dilated. The right atrium was not well visualized. 1.5mg of Definity was utilized for enhancement of images The aortic valve was not well visualized. Mild mitral regurgitation is present. Mild tricuspid regurgitation present. The right ventricular systolic pressure, as measured by Doppler, is {RVSP}. The pulmonic valve was not well visualized. There is a trivial pericardial effusion present. CONCLUSIONS -------- 1. Sinus rhythm. 2. Mild tricuspid regurgitation present. 3. The right ventricular systolic pressure, as measured by Doppler, is {RVSP}. 4. The pulmonic valve was not well visualized. 5. There is a trivial pericardial effusion present. 6. This was a technically difficult study with suboptimal views. 7. Grossly normal LV size and systolic function. Unable to comment on regional wall motion. 8. The right ventricle is normal in size and function. 9. The left atrium is markedly dilated. 10. The right atrium was not well visualized. 11. 1.5mg of Definity was utilized for enhancement of images 12. The aortic valve was not well visualized. 13. Mild mitral regurgitation is present. CHIP PERSON: Kailyn Madrid [facility]
[2016-03-25] MEDS: ASPIRIN 81 MG CHEW PO SCH (10:41)
[2016-03-25] MEDS: ATENOLOL 25 MG TAB PO SCH ×2 (10:41→21:42)
[2016-03-25] MEDS: ISOSORBIDE MONONITRATE ER 30 MG TAB.ER.24H PO SCH (10:42)
[2016-03-25] MEDS: POTASSIUM CHLORIDE ER 20 MEQ TAB.ER PO SCH (10:42)
[2016-03-25] MEDS: LACTOBACILLUS ACIDOPH & BULGAR 1 EACH PACKET PO SCH (10:42)
[2016-03-25] MEDS: PANTOPRAZOLE 40 MG TABLET PO SCH (10:42)
[2016-03-25] MEDS: MONTELUKAST 10 MG TAB PO SCH (10:42)
--- NOTE | 2016-03-25 13:20 | P.PN ---
Subjective This is an 89-year-old male one of Dr. Maza's patient with a previous medical history significant for hypertension and hypertensive cardio vascular disease, hyperkalemia, history of prostate cancer in the past, that was diagnosed a few years back underwent radiation therapy at [facility], has been in remission and was recently diagnosed on June 2015 of having locally advanced pancreatic cancer that has been under the care of Dr. Jimenez for which she did receive about 7 cycles of Gemzar, patient was recently hospitalized at [facility] because of chest pain and increased shortness breath he was diagnosed with non-ST elevation [place] and paroxysmal atrial fibrillation, at that time he was placed on atenolol 25 mg orally twice every day as well as aspirin and he was placed on heparin drip and the patient prognosis is poor so he did not go for any invasive procedure due to his advanced pancreatic cancer. Patient was discharged and he followed up with Dr. Celis as a matter of fact today and the patient ended up coming to the emergency department because of increased weakness in both lower x-rays and increased shortness of breath, patient had a chest x-ray in the ER that showed congestive heart failure and he does appear to have a significant acute kidney injury and top of chronic kidney disease and the patient legs were +4 pitting edema. Patient was admitted to the hospital initially was placed on the normal saline at 50 mL an hour for few hours and subsequently was taken off that and he was placed on Lasix 40 mg orally once every day he will also was started on Lasix 40 mg IV push 1 and a nephrology consultation as well as hematology oncology consultation was obtained. 2/3: Repeat labs show a WBC of 1.7, hemoglobin 9.9, platelet count 153. BUN 94 and creatinine 2.2. Sodium 133 and potassium 4.7. Repeat chest x-ray shows overall stable findings of cardiomegaly and small right greater than left pleural effusions and mild central vascular congestion suggesting heart failure exacerbation. Additional focal infiltrate and/or atelectasis is felt present in the right lung base. Patient has been seen by nephrology. IV fluids to saline lock and continue oral Lasix. He did receive one additional dose of IV lasix this morning. We are changing oral lasix to IV. 2/4: Patient is feeling weak, he continued to to have some coughing minimal phlegm production, he continues to have some swelling in both lower extremities although preoperative 5 however is a bit better from yesterday 03/23: Patient is sitting up in a recliner he continues to be somewhat short of breath, he continues to have some congested cough, he is feeling about the same , no new changes in his treatment we will continue same management. 03/24: WBC count 14.7, BUN 18 creatinine 2.1. CA 19-9 141.3. He is currently on Lasix 40 mg IV every 12 hours. Echocardiogram report pending. Patient states his breathing is only a little better. 03/25: White count 13.7. BUN , creatinine . Patient remains on same dose of Lasix 40 mg IV every 12 hours. He continues to have significant edema. Zaroxolyn added and Imdur decreased. Repeat CXR ordered. Objective - Vital Signs Vital signs: Vital Signs Temp 97.5 F L 03/25/16 03:54 Pulse 104 H 03/25/16 08:25 Resp 17 03/25/16 03:54 BP 102/63 03/25/16 03:54 Pulse Ox 93 L 03/25/16 03:54 Intake & Output 03/24/16 03/25/16 03/25/16 18:59 06:59 18:59 Intake Total 700 Output Total 1306 202 Balance -1306 498 Weight 92.6 kg 92.2 kg Intake: IV 40 Lasix 40 Oral 660 Output: Urine 1300 200 Stool 6 2 Other: Voiding Method Toilet Toilet Urinal Urinal # Voids 0 2 # Bowel Movements 1 - Exam General appearance: average body habitus, mild distress - EENT Eyes: anicteric sclerae, PERRLA, no ptosis, no scleral icterus, normal appearance ENT: hard of hearing, normal oropharynx, no thrush Ears: bilateral: normal - Neck Neck: no lymphadenopathy, normal ROM, no rigidity, no stridor, no thyromegaly Carotids: bilateral: upstroke delayed Thyroid: bilateral: normal size - Respiratory Respiratory: bilateral: diminished, rales, rhonchi, wheezing, prolonged expiration, negative: dullness - Cardiovascular Rhythm: irregularly irregular Heart sounds: normal: S1, S2 Abnormal Heart Sounds: systolic murmur, no rub, no click - Gastrointestinal General gastrointestinal: normal bowel sounds, soft, no splenomegaly, tenderness , no umbilical hernia, no ventral hernia - Genitourinary Male genitourinary: scrotal edema - Integumentary Integumentary: normal, normal turgor, pale - Musculoskeletal Musculoskeletal: generalized weakness, strength equal bilaterally - Psychiatric Psychiatric: A&O x's 3, appropriate affect, intact judgment & insight - Labs CBC & Chem 7: 03/25/16 05:58 03/25/16 05:58 Labs: Abnormal Lab Results - Last 24 Hours (Table) 03/25/16 Range/Units 05:58 WBC 13.7 H (3.8-10.6) k/uL RBC 3.13 L (4.30-5.90) m/uL Hgb 10.2 L (13.0-17.5) gm/dL Hct 33.1 L (39.0-53.0) % MCV 105.5 H (80.0-100.0) fL MCHC 30.8 L (31.0-37.0) g/dL RDW 21.9 H (11.5-15.5) % Plt Count 124 L (150-450) k/uL Neutrophils # 11.3 H (1.3-7.7) k/uL Lymphocytes # 0.3 L (1.0-4.8) k/uL Monocytes # 1.7 H (0-1.0) k/uL Assessment and Plan Plan: 1. Acute systolic and diastolic heart failure. Continue patient on atenolol 25 mg orally once every day, start the patient on Lasix 40 mg IV twice a day, monitor the patient input and output and daily weight. Zaroxolyn ordered. Repeat CXR. 2. Acute kidney injury and top of chronic kidney disease stage III. Monitor the patient CMP, magnesium, phosphorus, patient could not tolerate IV fluid because of significant diastolic and systolic heart failure, nephrology consultation was obtained. 3. Paroxysmal atrial fibrillation. Continue atenolol 25 mg orally twice every day, continue aspirin 81 mg orally once every day, patient is not a candidate for anticoagulation because of the risk of bleeding. 4. History of locally advanced pancreatic cancer post 7 cycles of Gemzar, last chemotherapy was in March [address] Beavers. 5. History of prostate cancer post radiation. Currently in remission. 6. GERD with esophagitis. Continue Nexium 40 mg orally once every day. 7. Bilateral lower extremity edema secondary to combination of systolic and diastolic heart failure along with protein calorie malnutrition and worsening renal failure. Continue Louis wrap, continue Lasix 40 mg orally once every day. 8. Vitamin D deficiency. Continue vitamin D supplement. 9. Osteoarthritis. Stable. 10. DVT prophylaxis. Heparin 5000 units subcutaneously every 12 hours. 11. GI prophylaxis. Continue Nexium 40 mg orally once every day. 12. ALLERGIC rhinitis. Continue Singulair 10 mg orally at bedtime. 13. Severe protein calorie malnutrition. Continue Ensure 14. Leukopenia. chemotherapy induced post G-CSF. 15. Patient is DO NOT RESUSCITATE. 16. disc pad knockout worker consult, physical therapy consult, patient will need to be placed at [facility] on , Impression and plan of care have been directed as dictated by the signing physician. Snow Ferguson nurse practitioner acting as scribe for signing physician. Time with Patient: Greater than 30
[2016-03-25] MEDS: CYANOCOBALAMIN 500 MCG TAB PO SCH (13:25)
--- NOTE | 2016-03-25 14:42 | XR ---
EXAMINATION TYPE: XR chest 2V DATE OF EXAM: 03/25/2016 2:29 PM COMPARISON: Prior chest x-ray [address] abdomen and pelvis March 17, 2016. HISTORY: Cough and congestion, CHF progress study. TECHNIQUE: Frontal and lateral views of the chest are obtained. FINDINGS: There is persisting cardiomegaly with prominent right atrial dilatation and cardiac silhou ette deviated right of midline with atherosclerotic thoracic aorta. There are persistent small to moderate-sized right greater than left pleural effusions, some progress ion on the right side is noted from prior. There is associated bibasilar atelectasis and/or infiltrat e. Upper lungs remain clear without pneumothorax. Osseous structures are demineralized. Old fracture deformity right proximal humerus is suspected. IMPRESSION: Cardiomegaly with small to moderate-sized right greater than left pleural effusions and associated bibasilar atelectasis and/or infiltrates all redemonstrated, increased in right-sided effu mahendra noted since most recent prior.
[2016-03-25] MEDS: PROMETHAZ-COD 6.25-10 MG/5 ML 5 ML CUP PO PRN (16:28)
--- NOTE | 2016-03-25 19:50 | PN ---
Patient is seen for followup for kidney injury on top of chronic kidney disease. He is lying in bed, comfortable. He states he feels quite weak and was not able to do PT very well. No significant shortness of breath. On examination, blood pressure is 109/57, heart rate 110 per minute. Patient is afebrile. EXAMINATION OF THE HEART: S1 and S2. EXAMINATION OF THE LUNGS: Good air entry bilaterally with decreased breath sounds in the bases. ABDOMEN: Soft, nontender. Examination of lower extremities shows bilateral extremities to be wrapped. Labs show sodium 136, potassium 4.2, BUN 89, serum creatinine 2.1. Hemoglobin at 10.2 g/dL. ASSESSMENT: 1. Acute kidney injury, most likely cardiorenal, currently stable with serum creatinine staying at about 2.1 mg/dL. 2. Chronic kidney disease, stage III, secondary to nephrosclerosis with no abnormal findings on the CT scan and a fairly benign urinalysis with baseline creatinine around 1.5 to 1.7 mg/dL. 3. Volume overload, maintained on Lasix. Increase to q.8 hours. Chest x-ray shows increased pleural effusions. 4. Underlying pancreatic cancer, maintained on chemotherapy. 5. Hypotension on perfusion, currently improved. 6. Paroxysmal atrial fibrillation. Continue with the atenolol. 7. History of prostatic cancer, status post radiation. PLAN: Increase Lasix to q.8 hours. Repeat labs in a.m.
[2016-03-25] MEDS: ATORVASTATIN 10 MG TAB PO SCH (21:42)
[2016-03-25] MEDS: DONEPEZIL 5 MG TAB PO SCH (21:42)
[2016-03-25] MEDS: traMADol 50 MG TAB PO PRN (21:53)
[2016-03-26 07:07] LABS: Anisocytosis Moderate; CH 33.5; CHCM 31.8; HCT 32.6 % (39.0-53.0); HGB 10.5 gm/dL (13.0-17.5); Hypochromasia Slight; MCH 33.9 pg (25.0-35.0); MCV 105.8 fL (80.0-100.0); Macrocytosis Marked; Mean Platelet Volume 8.1; RBC 3.08 m/uL (4.30-5.90); RDW 22.3 % (11.5-15.5); WBC 9.2 k/uL (3.8-10.6)
[2016-03-26 07:33] LABS: Calcium 8.5 mg/dL (8.4-10.2); Potassium 4.4 mmol/L (3.5-5.1); Total Bilirubin 1.5 mg/dL (0.2-1.3); Total Protein 4.9 g/dL (6.3-8.2)
[2016-03-26] MEDS: IPRATROPIUM-ALBUTEROL 3 ML NEB INHALATION SCH ×3 (08:31→20:03)
[2016-03-26] MEDS: BUDESONIDE 0.5 MG/2 ML NEBU INHALATION SCH ×2 (08:31→20:03)
--- NOTE | 2016-03-26 08:41 | P.DS ---
Providers Date of admission: 03/19/16 21:18 Expected date of discharge: 03/27/16 Attending physician: Shawna Maza Consults: 03/20/16 14:59 Consult Physician Routine Consulting Provider: Benji Pyle Consult Reason/Comments: pancreatic cancer Do you want consulting provider notified?: Yes Primary care physician: Shawna Maza [facility] Course: This is an 89-year-old male one of Dr. Maza's patient with a previous medical history significant for hypertension and hypertensive cardio vascular disease, hyperkalemia, history of prostate cancer in the past, that was diagnosed a few years back underwent radiation therapy at [facility], has been in remission and was recently diagnosed on June 2015 of having locally advanced pancreatic cancer that has been under the care of Dr. Jimenez for which she did receive about 7 cycles of Gemzar, patient was recently hospitalized at [facility] because of chest pain and increased shortness breath he was diagnosed with non-ST elevation [place] and paroxysmal atrial fibrillation, at that time he was placed on atenolol 25 mg orally twice every day as well as aspirin and he was placed on heparin drip and the patient prognosis is poor so he did not go for any invasive procedure due to his advanced pancreatic cancer. Patient was discharged and he followed up with Dr. Celis as a matter of fact today and the patient ended up coming to the emergency department because of increased weakness in both lower x-rays and increased shortness of breath, patient had a chest x-ray in the ER that showed congestive heart failure and he does appear to have a significant acute kidney injury and top of chronic kidney disease and the patient legs were +4 pitting edema. Patient was admitted to the hospital initially was placed on the normal saline at 50 mL an hour for few hours and subsequently was taken off that and he was placed on Lasix 40 mg orally once every day he will also was started on Lasix 40 mg IV push 1 and a nephrology consultation as well as hematology oncology consultation was obtained. 2/3: Repeat labs show a WBC of 1.7, hemoglobin 9.9, platelet count 153. BUN 94 and creatinine 2.2. Sodium 133 and potassium 4.7. Repeat chest x-ray shows overall stable findings of cardiomegaly and small right greater than left pleural effusions and mild central vascular congestion suggesting heart failure exacerbation. Additional focal infiltrate and/or atelectasis is felt present in the right lung base. Patient has been seen by nephrology. IV fluids to saline lock and continue oral Lasix. He did receive one additional dose of IV lasix this morning. We are changing oral lasix to IV. 03/22: Patient is feeling weak, he continued to to have some coughing minimal phlegm production, he continues to have some swelling in both lower extremities although preoperative 5 however is a bit better from yesterday 03/23: Patient is sitting up in a recliner he continues to be somewhat short of breath, he continues to have some congested cough, he is feeling about the same , no new changes in his treatment we will continue same management. 03/24: WBC count 14.7, BUN 18 creatinine 2.1. CA 19-9 141.3. He is currently on Lasix 40 mg IV every 12 hours. Echocardiogram report pending. Patient states his breathing is only a little better. 03/25: White count 13.7. BUN , creatinine . Patient remains on same dose of Lasix 40 mg IV every 12 hours. He continues to have significant edema. Zaroxolyn added and Imdur decreased. Repeat CXR ordered. 03/26: hemoglobin 10.5, platelet count 117, BUN 91 and creatinine 2.03. Patient is on Lasix 40 mg every 8 hours. He did start Zaroxolyn this morning. Patient did walk with physical therapy this morning. Anticipate discharge tomorrow to [facility]. 03/27:Patient complains of feeling tired and did not sleep all night because his neighbor had his TV on. HGB 10.4, BUN 94 and creatinine 2.03. Currently on IV Lasix 40 mg every 8 hours which will be switched over to oral. Patient will be discharged home today in stable condition. Discharge Diagnoses: 1. Acute systolic and diastolic heart failure. 2. Acute kidney injury due to cardiorenal and top of chronic kidney disease stage III. 3. Paroxysmal atrial fibrillation. 4. History of locally advanced pancreatic cancer post 7 cycles of Gemzar, last chemotherapy was in March 13 2016. 5. History of prostate cancer post radiation. Currently in remission. 6. GERD with esophagitis. 7. Bilateral lower extremity edema secondary to combination of systolic and diastolic heart failure along with protein calorie malnutrition and worsening renal failure. 8. Vitamin D deficiency. 9. Osteoarthritis. 10. ALLERGIC rhinitis. 11. Severe protein calorie malnutrition. Continue Ensure 12. Leukopenia. chemotherapy induced post G-CSF. Discharge Plan: on under the care of Dr. Maza Impression and plan of care have been directed as dictated by the signing physician. Snow Ferguson nurse practitioner acting as scribe for signing physician. Patient Condition at Discharge: Good Plan - Discharge Summary New Discharge Prescriptions: Melatonin 6 mg PO HS #60 tablet Promethaz-Cod 6.25-10 mg/5 ml [Phenergan with Codeine] 5 ml PO Q6H PRN #100 ml PRN Reason: Cold Symptoms traMADol HCl [Ultram] 50 mg PO QID PRN #120 tab PRN Reason: Pain Discharge Medication List Atenolol [Tenormin] 25 mg PO BID 05/18/15 [History] Atorvastatin [Lipitor] 10 mg PO HS 05/18/15 [History] Donepezil [Aricept] 5 mg PO HS 05/18/15 [History] L.acidoph,Paracasei, B.lactis [Probiotic] 1 cap PO DAILY 05/18/15 [History] Montelukast Sodium [Singulair] 10 mg PO DAILY 05/18/15 [History] Aspirin [Adult Low Dose Aspirin EC] 81 mg PO DAILY 03/19/16 [History] Esomeprazole Magnesium [NexIUM] 20 mg PO DAILY 03/19/16 [History] Multivitamin [Multivitamins Adult Gummies] 2 tab PO DAILY 03/19/16 [History] Budesonide [Pulmicort] 0.5 mg INHALATION RT-BID nebu 03/27/16 [Rx] Cyanocobalamin [Vitamin B-12] 500 mcg PO DAILY@1200 tab 03/27/16 [Rx] Furosemide [Lasix] 40 mg PO TID #0 03/27/16 [Rx] Ipratropium-Albuterol Nebulize [Duoneb 0.5 mg-3 mg/3 ml Soln] 3 ml INHALATION RT -TID ampul.neb 03/27/16 [Rx] Isosorbide Mononitrate ER [Imdur] 15 mg PO DAILY dose 03/27/16 [Rx] Melatonin 6 mg PO HS #60 tablet 03/27/16 [Rx] Metolazone [Zaroxolyn] 2.5 mg PO MoWeFr@1200 tab 02/09/17 [Rx] Potassium Chloride ER [K-Dur 20] 20 meq PO DAILY tab.er.prt 03/27/16 [Rx] Promethaz-Cod 6.25-10 mg/5 ml [Phenergan with Codeine] 5 ml PO Q6H PRN #100 ml 03/27/16 [Rx] traMADol HCl [Ultram] 50 mg PO QID PRN #120 tab 03/27/16 [Rx] Follow up Appointment(s)/Referral(s): Shawna Maza MD [Primary Care Provider] - 1 Week Mary Nugent MD [STAFF PHYSICIAN] - 1 Week Nico Nguyễn MD [STAFF PHYSICIAN] - 2 Weeks Discharge Disposition: TRANSFER TO SNF/ECF
[2016-03-26] MEDS: POTASSIUM CHLORIDE ER 20 MEQ TAB.ER PO SCH (09:43)
[2016-03-26] MEDS: ISOSORBIDE MONONITRATE ER 15 MG TAB PO SCH (09:43)
[2016-03-26] MEDS: FUROSEMIDE 10 MG/ML 4 ML VIAL IV SCH ×2 (09:43→16:40)
[2016-03-26] MEDS: MONTELUKAST 10 MG TAB PO SCH (09:43)
[2016-03-26] MEDS: PANTOPRAZOLE 40 MG TABLET PO SCH (09:44)
[2016-03-26] MEDS: ATENOLOL 25 MG TAB PO SCH ×2 (09:44→20:07)
[2016-03-26] MEDS: ASPIRIN 81 MG CHEW PO SCH (09:44)
[2016-03-26] MEDS: LACTOBACILLUS ACIDOPH & BULGAR 1 EACH PACKET PO SCH (09:44)
[2016-03-26] MEDS: PROMETHAZ-COD 6.25-10 MG/5 ML 5 ML CUP PO PRN ×2 (09:46→16:40)
[2016-03-26 11:47] VITALS: BMI 30.2
[2016-03-26] MEDS: METOLAZONE 2.5 MG TAB PO SCH (13:25)
[2016-03-26] MEDS: CYANOCOBALAMIN 500 MCG TAB PO SCH (13:25)
--- NOTE | 2016-03-26 14:21 | PN ---
The patient is being seen for follow-up for acute kidney injury on top of chronic kidney disease. He is currently being treated for hypervolemia and is maintained on Lasix 40 mg q.8 hours. Patient has significant lower extremity edema. He states he is feeling slightly better. His renal function has been stable throughout the stay. On examination today, blood pressure is 101/56, heart rate 78 per minute. He is afebrile. Examination of the heart S1 and S2. Examination of the lungs: Bilateral breath sounds are heard. Decreased breath sounds in the bases. ABDOMEN: Soft, nontender. Examination of the lower extremities shows bilateral extremities to be wrapped. Labs show sodium 136, potassium 4.4, BUN 91, serum creatinine 2.08. Hemoglobin 10.5 g/dL. ASSESSMENT: 1. Chronic kidney disease, NKF stage III, with baseline creatinine about 1.5 to 1.7 mg/dL. 2. Acute kidney injury, mostly cardiorenal, with fairly stable renal function and creatinine staying at about 2 to 2.1. 3. Volume overload maintained on Lasix, seems to have improved today. 4. History of pancreatic cancer, maintained on chemotherapy. 5. Paroxysmal atrial fibrillation maintained on Atenolol. 6. History of prostatic cancer status post radiation. PLAN: No significant changes from nephrology standpoint. He needs to follow up as outpatient to assess the volume status and the diuretics.
--- NOTE | 2016-03-26 15:33 | P.PN ---
Subjective This is an 89-year-old male one of Dr. Maza's patient with a previous medical history significant for hypertension and hypertensive cardio vascular disease, hyperkalemia, history of prostate cancer in the past, that was diagnosed a few years back underwent radiation therapy at [facility], has been in remission and was recently diagnosed on June 2015 of having locally advanced pancreatic cancer that has been under the care of Dr. Jimenez for which she did receive about 7 cycles of Gemzar, patient was recently hospitalized at [facility] because of chest pain and increased shortness breath he was diagnosed with non-ST elevation [place] and paroxysmal atrial fibrillation, at that time he was placed on atenolol 25 mg orally twice every day as well as aspirin and he was placed on heparin drip and the patient prognosis is poor so he did not go for any invasive procedure due to his advanced pancreatic cancer. Patient was discharged and he followed up with Dr. Celis as a matter of fact today and the patient ended up coming to the emergency department because of increased weakness in both lower x-rays and increased shortness of breath, patient had a chest x-ray in the ER that showed congestive heart failure and he does appear to have a significant acute kidney injury and top of chronic kidney disease and the patient legs were +4 pitting edema. Patient was admitted to the hospital initially was placed on the normal saline at 50 mL an hour for few hours and subsequently was taken off that and he was placed on Lasix 40 mg orally once every day he will also was started on Lasix 40 mg IV push 1 and a nephrology consultation as well as hematology oncology consultation was obtained. 2/3: Repeat labs show a WBC of 1.7, hemoglobin 9.9, platelet count 153. BUN 94 and creatinine 2.2. Sodium 133 and potassium 4.7. Repeat chest x-ray shows overall stable findings of cardiomegaly and small right greater than left pleural effusions and mild central vascular congestion suggesting heart failure exacerbation. Additional focal infiltrate and/or atelectasis is felt present in the right lung base. Patient has been seen by nephrology. IV fluids to saline lock and continue oral Lasix. He did receive one additional dose of IV lasix this morning. We are changing oral lasix to IV. 2/4: Patient is feeling weak, he continued to to have some coughing minimal phlegm production, he continues to have some swelling in both lower extremities although preoperative 5 however is a bit better from yesterday 03/23: Patient is sitting up in a recliner he continues to be somewhat short of breath, he continues to have some congested cough, he is feeling about the same , no new changes in his treatment we will continue same management. 03/24: WBC count 14.7, BUN 18 creatinine 2.1. CA 19-9 141.3. He is currently on Lasix 40 mg IV every 12 hours. Echocardiogram report pending. Patient states his breathing is only a little better. 03/25: White count 13.7. BUN , creatinine . Patient remains on same dose of Lasix 40 mg IV every 12 hours. He continues to have significant edema. Zaroxolyn added and Imdur decreased. Repeat CXR ordered. 03/26: hemoglobin 10.5, platelet count 117, BUN 91 and creatinine 2.03. Patient is continued on Lasix 40 mg every 8 hours. He did start Zaroxolyn this morning. Patient did walk with physical therapy this morning. Anticipate discharge tomorrow to [facility]. Objective - Vital Signs Vital signs: Vital Signs Temp 97.1 F L 03/26/16 04:15 Pulse 95 03/26/16 08:52 Resp 18 03/26/16 04:15 BP 102/58 03/26/16 04:15 Pulse Ox 93 L 03/26/16 04:15 Intake & Output 03/25/16 03/26/16 03/26/16 18:59 06:59 18:59 Intake Total 1694 540 Output Total 1401 1075 Balance 293 -535 Weight 92.9 kg Intake: Oral 1694 540 Output: Urine 1400 1075 Stool 1 Other: Voiding Method Toilet Bedside Commode Urinal # Voids 0 # Bowel Movements 0 1 - Exam General appearance: average body habitus, mild distress - EENT Eyes: anicteric sclerae, PERRLA, no ptosis, no scleral icterus, normal appearance ENT: hard of hearing, normal oropharynx, no thrush Ears: bilateral: normal - Neck Neck: no lymphadenopathy, normal ROM, no rigidity, no stridor, no thyromegaly Carotids: bilateral: upstroke delayed Thyroid: bilateral: normal size - Respiratory Respiratory: bilateral: diminished, rales, rhonchi, wheezing, prolonged expiration, negative: dullness - Cardiovascular Rhythm: irregularly irregular Heart sounds: normal: S1, S2 Abnormal Heart Sounds: systolic murmur, no rub, no click - Gastrointestinal General gastrointestinal: normal bowel sounds, soft, no splenomegaly, tenderness , no umbilical hernia, no ventral hernia - Genitourinary Male genitourinary: scrotal edema - Integumentary Integumentary: normal, normal turgor, pale - Musculoskeletal Musculoskeletal: generalized weakness, strength equal bilaterally - Psychiatric Psychiatric: A&O x's 3, appropriate affect, intact judgment & insight - Labs CBC & Chem 7: 03/26/16 06:16 03/26/16 06:16 Labs: Abnormal Lab Results - Last 24 Hours (Table) 03/26/16 03/26/16 Range/Units 06:16 06:16 RBC 3.08 L (4.30-5.90) m/uL Hgb 10.5 L (13.0-17.5) gm/dL Hct 32.6 L (39.0-53.0) % MCV 105.8 H (80.0-100.0) fL RDW 22.3 H (11.5-15.5) % Plt Count 117 L (150-450) k/uL Sodium 136 L (137-145) mmol/L BUN 91 H* (9-20) mg/dL Creatinine 2.03 H (0.66-1.25) mg/dL Total Bilirubin 1.5 H (0.2-1.3) mg/dL Total Protein 4.9 L (6.3-8.2) g/dL Albumin 2.6 L (3.5-5.0) g/dL Assessment and Plan Plan: 1. Acute systolic and diastolic heart failure. Continue patient on atenolol 25 mg orally once every day, start the patient on Lasix 40 mg IV twice a day, monitor the patient input and output and daily weight. Zaroxolyn ordered. Repeat CXR. 2. Acute kidney injury and top of chronic kidney disease stage III. Monitor the patient CMP, magnesium, phosphorus, patient could not tolerate IV fluid because of significant diastolic and systolic heart failure, nephrology consultation was obtained. 3. Paroxysmal atrial fibrillation. Continue atenolol 25 mg orally twice every day, continue aspirin 81 mg orally once every day, patient is not a candidate for anticoagulation because of the risk of bleeding. 4. History of locally advanced pancreatic cancer post 7 cycles of Gemzar, last chemotherapy was in March [address] Beavers. 5. History of prostate cancer post radiation. Currently in remission. 6. GERD with esophagitis. Continue Nexium 40 mg orally once every day. 7. Bilateral lower extremity edema secondary to combination of systolic and diastolic heart failure along with protein calorie malnutrition and worsening renal failure. Continue Louis wrap, continue Lasix 40 mg orally once every day. 8. Vitamin D deficiency. Continue vitamin D supplement. 9. Osteoarthritis. Stable. 10. DVT prophylaxis. Heparin 5000 units subcutaneously every 12 hours. 11. GI prophylaxis. Continue Nexium 40 mg orally once every day. 12. ALLERGIC rhinitis. Continue Singulair 10 mg orally at bedtime. 13. Severe protein calorie malnutrition. Continue Ensure 14. Leukopenia. chemotherapy induced post G-CSF. 15. Patient is DO NOT RESUSCITATE. 16. 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 Snow Ferguson nurse practitioner acting as scribe for signing physician. Time with Patient: Greater than 30
[2016-03-26] MEDS: DONEPEZIL 5 MG TAB PO SCH (20:07)
[2016-03-26] MEDS: ATORVASTATIN 10 MG TAB PO SCH (20:07)
[2016-03-26] MEDS: traMADol 50 MG TAB PO PRN (20:07)
[2016-03-27 07:41] LABS: Anisocytosis Moderate; CH 34.1; HDW 2.76; HGB 10.4 gm/dL (13.0-17.5); MCH 33.7 pg (25.0-35.0); MCHC 32.4 g/dL (31.0-37.0); MCV 103.9 fL (80.0-100.0); Macrocytosis Marked; Mean Platelet Volume 8.6; RBC 3.08 m/uL (4.30-5.90); RDW 22.7 % (11.5-15.5); WBC 5.8 k/uL (3.8-10.6)
[2016-03-27 08:02] LABS: Calcium 8.3 mg/dL (8.4-10.2); Potassium 4.2 mmol/L (3.5-5.1)
[2016-03-27] MEDS: IPRATROPIUM-ALBUTEROL 3 ML NEB INHALATION SCH ×3 (08:23→20:31)
[2016-03-27] MEDS: BUDESONIDE 0.5 MG/2 ML NEBU INHALATION SCH ×2 (08:23→20:31)
[2016-03-27] MEDS: ASPIRIN 81 MG CHEW PO SCH (08:56)
[2016-03-27] MEDS: ATENOLOL 25 MG TAB PO SCH ×2 (08:56→21:21)
[2016-03-27] MEDS: FUROSEMIDE 10 MG/ML 4 ML VIAL IV SCH ×4 (08:56→23:26)
[2016-03-27] MEDS: LACTOBACILLUS ACIDOPH & BULGAR 1 EACH PACKET PO SCH (08:57)
[2016-03-27] MEDS: ISOSORBIDE MONONITRATE ER 15 MG TAB PO SCH (08:57)
[2016-03-27] MEDS: MONTELUKAST 10 MG TAB PO SCH (08:57)
[2016-03-27] MEDS: PANTOPRAZOLE 40 MG TABLET PO SCH (08:58)
[2016-03-27] MEDS: CYANOCOBALAMIN 500 MCG TAB PO SCH (08:58)
[2016-03-27] MEDS: POTASSIUM CHLORIDE ER 20 MEQ TAB.ER PO SCH (08:58)
--- NOTE | 2016-03-27 11:03 | P.PN ---
Subjective She does seen in follow-up for acute kidney injury on chronic kidney disease. Patient has chronic kidney disease stage III with baseline creatinine in the range of 1.5-1.7. Creatinine is stable at 2.03 today. Patient is currently resting in bed. Denies vomiting or diarrhea. Admits to good urine output. Vital signs are stable. General: The patient appeared well nourished and normally developed. HEENT: Head exam is unremarkable. Neck is without jugular venous distension. LUNGS: Lungs are clear to auscultation and percussion. Breath sounds decreased. HEART: Rate and Rhythm are regular. First and second heart sounds normal. No murmurs, rubs or gallops. ABDOMEN: Abdominal exam reveals normal bowel sounds. Non-tender and non- distended. No evidence of peritonitis. EXTREMITITES: 1+ edema. Objective - Vital Signs Vital signs: Vital Signs Temp 95.2 F L 03/27/16 08:00 Pulse 76 03/27/16 08:46 Resp 16 03/27/16 08:00 BP 98/54 03/27/16 08:00 Pulse Ox 93 L 03/27/16 08:00 Intake & Output 03/26/16 03/27/16 03/27/16 18:59 06:59 18:59 Intake Total 298 100 Output Total 2 500 200 Balance 296 -500 -100 Weight 92.9 kg 91.8 kg Intake: Oral 298 100 Output: Urine 500 200 Stool 2 Other: Voiding Method Bedside Commode Urinal # Voids 0 1 # Bowel Movements 1 - Labs CBC & Chem 7: 03/27/16 06:44 03/27/16 06:44 Labs: Abnormal Lab Results - Last 24 Hours (Table) 03/27/16 03/27/16 Range/Units 06:44 06:44 RBC 3.08 L (4.30-5.90) m/uL Hgb 10.4 L (13.0-17.5) gm/dL Hct 32.0 L (39.0-53.0) % MCV 103.9 H (80.0-100.0) fL RDW 22.7 H (11.5-15.5) % Plt Count 110 L (150-450) k/uL Sodium 136 L (137-145) mmol/L BUN 94 H* (9-20) mg/dL Creatinine 2.03 H (0.66-1.25) mg/dL Calcium 8.3 L (8.4-10.2) mg/dL Assessment and Plan Plan: Assessment: #1. Nonoliguric acute kidney injury secondary to cardiorenal syndrome. Creatinine stable at 2.03 today. #2. Chronic kidney disease stage III with baseline creatinine in the range of 1.5-1.7. #3. Volume overload. Gradually improving. #4. Paroxysmal atrial fibrillation. Rate controlled. Plan: Continue current regimen of diuretics. Plan for discharge to [facility] today. He's to follow-up as an outpatient in the next 1-2 weeks.
[2016-03-27] MEDS: traMADol 50 MG TAB PO PRN ×2 (17:45→21:21)
[2016-03-27] MEDS: ATORVASTATIN 10 MG TAB PO SCH (21:21)
[2016-03-27] MEDS: DONEPEZIL 5 MG TAB PO SCH (21:21)
[2016-03-28 06:44] LABS: Anisocytosis Moderate; CH 33.8; CHCM 32.3; Calcium 8.2 mg/dL (8.4-10.2); HCT 30.9 % (39.0-53.0); HGB 10.1 gm/dL (13.0-17.5); MCH 34.5 pg (25.0-35.0); MCHC 32.7 g/dL (31.0-37.0); MCV 105.4 fL (80.0-100.0); Macrocytosis Marked; Mean Platelet Volume 8.2; Potassium 3.8 mmol/L (3.5-5.1); RBC 2.93 m/uL (4.30-5.90); RDW 22.3 % (11.5-15.5); WBC 3.9 k/uL (3.8-10.6)
[2016-03-28] MEDS: IPRATROPIUM-ALBUTEROL 3 ML NEB INHALATION SCH ×3 (08:53→21:05)
[2016-03-28] MEDS: BUDESONIDE 0.5 MG/2 ML NEBU INHALATION SCH ×2 (08:53→21:04)
[2016-03-28] MEDS: LACTOBACILLUS ACIDOPH & BULGAR 1 EACH PACKET PO SCH (09:33)
[2016-03-28] MEDS: FUROSEMIDE 10 MG/ML 4 ML VIAL IV SCH ×3 (09:33→23:20)
[2016-03-28] MEDS: ATENOLOL 25 MG TAB PO SCH ×2 (09:33→21:51)
[2016-03-28] MEDS: ISOSORBIDE MONONITRATE ER 15 MG TAB PO SCH (09:33)
[2016-03-28] MEDS: ASPIRIN 81 MG CHEW PO SCH (09:33)
[2016-03-28] MEDS: CYANOCOBALAMIN 500 MCG TAB PO SCH (09:34)
[2016-03-28] MEDS: POTASSIUM CHLORIDE ER 20 MEQ TAB.ER PO SCH (09:34)
[2016-03-28] MEDS: MONTELUKAST 10 MG TAB PO SCH (09:34)
[2016-03-28] MEDS: PANTOPRAZOLE 40 MG TABLET PO SCH (09:34)
[2016-03-28] MEDS: METOLAZONE 2.5 MG TAB PO SCH (09:35)
--- NOTE | 2016-03-28 11:30 | P.PN ---
Subjective This is an 89-year-old male one of Dr. Maza's patient with a previous medical history significant for hypertension and hypertensive cardio vascular disease, hyperkalemia, history of prostate cancer in the past, that was diagnosed a few years back underwent radiation therapy at [facility], has been in remission and was recently diagnosed on June 2015 of having locally advanced pancreatic cancer that has been under the care of Dr. Jimenez for which she did receive about 7 cycles of Gemzar, patient was recently hospitalized at [facility] because of chest pain and increased shortness breath he was diagnosed with non-ST elevation [place] and paroxysmal atrial fibrillation, at that time he was placed on atenolol 25 mg orally twice every day as well as aspirin and he was placed on heparin drip and the patient prognosis is poor so he did not go for any invasive procedure due to his advanced pancreatic cancer. Patient was discharged and he followed up with Dr. Celis as a matter of fact today and the patient ended up coming to the emergency department because of increased weakness in both lower x-rays and increased shortness of breath, patient had a chest x-ray in the ER that showed congestive heart failure and he does appear to have a significant acute kidney injury and top of chronic kidney disease and the patient legs were +4 pitting edema. Patient was admitted to the hospital initially was placed on the normal saline at 50 mL an hour for few hours and subsequently was taken off that and he was placed on Lasix 40 mg orally once every day he will also was started on Lasix 40 mg IV push 1 and a nephrology consultation as well as hematology oncology consultation was obtained. 2/3: Repeat labs show a WBC of 1.7, hemoglobin 9.9, platelet count 153. BUN 94 and creatinine 2.2. Sodium 133 and potassium 4.7. Repeat chest x-ray shows overall stable findings of cardiomegaly and small right greater than left pleural effusions and mild central vascular congestion suggesting heart failure exacerbation. Additional focal infiltrate and/or atelectasis is felt present in the right lung base. Patient has been seen by nephrology. IV fluids to saline lock and continue oral Lasix. He did receive one additional dose of IV lasix this morning. We are changing oral lasix to IV. 2/4: Patient is feeling weak, he continued to to have some coughing minimal phlegm production, he continues to have some swelling in both lower extremities although preoperative 5 however is a bit better from yesterday 03/23: Patient is sitting up in a recliner he continues to be somewhat short of breath, he continues to have some congested cough, he is feeling about the same , no new changes in his treatment we will continue same management. 03/24: WBC count 14.7, BUN 18 creatinine 2.1. CA 19-9 141.3. He is currently on Lasix 40 mg IV every 12 hours. Echocardiogram report pending. Patient states his breathing is only a little better. 03/25: White count 13.7. BUN , creatinine . Patient remains on same dose of Lasix 40 mg IV every 12 hours. He continues to have significant edema. Zaroxolyn added and Imdur decreased. Repeat CXR ordered. 03/26: hemoglobin 10.5, platelet count 117, BUN 91 and creatinine 2.03. Patient is continued on Lasix 40 mg every 8 hours. He did start Zaroxolyn this morning. Patient did walk with physical therapy this morning. Anticipate discharge tomorrow to [facility]. 03/27:Patient complains of feeling tired and did not sleep all night because his neighbor had his TV on. HGB 10.4, BUN 94 and creatinine 2.03. Currently on IV Lasix 40 mg every 8 hours which will be switched over to oral. Patient was prepared for discharge to [facility] but awaiting authorization from his insurance company. Objective - Vital Signs Vital signs: Vital Signs Temp 97.4 F L 03/28/16 03:11 Pulse 76 03/28/16 09:05 Resp 16 03/28/16 08:00 BP 129/56 03/28/16 08:00 Pulse Ox 96 03/28/16 08:54 Intake & Output 03/27/16 03/28/16 03/28/16 18:59 06:59 18:59 Intake Total 218 118 Output Total 600 1200 100 Balance -382 -1200 18 Weight 92 kg Intake: Oral 218 118 Output: Urine 600 1200 100 Other: Voiding Method Urinal Urinal # Bowel Movements 1 - Exam General appearance: average body habitus, mild distress - EENT Eyes: anicteric sclerae, PERRLA, no ptosis, no scleral icterus, normal appearance ENT: hard of hearing, normal oropharynx, no thrush Ears: bilateral: normal - Neck Neck: no lymphadenopathy, normal ROM, no rigidity, no stridor, no thyromegaly Carotids: bilateral: upstroke delayed Thyroid: bilateral: normal size - Respiratory Respiratory: bilateral: diminished, rales, rhonchi, wheezing, prolonged expiration, negative: dullness - Cardiovascular Rhythm: irregularly irregular Heart sounds: normal: S1, S2 Abnormal Heart Sounds: systolic murmur, no rub, no click - Gastrointestinal General gastrointestinal: normal bowel sounds, soft, no splenomegaly, tenderness , no umbilical hernia, no ventral hernia - Genitourinary Male genitourinary: scrotal edema - Integumentary Integumentary: normal, normal turgor, pale - Musculoskeletal Musculoskeletal: generalized weakness, strength equal bilaterally - Psychiatric Psychiatric: A&O x's 3, appropriate affect, intact judgment & insight - Labs CBC & Chem 7: 03/28/16 05:56 03/28/16 05:56 Labs: Abnormal Lab Results - Last 24 Hours (Table) 03/28/16 03/28/16 Range/Units 05:56 05:56 RBC 2.93 L (4.30-5.90) m/uL Hgb 10.1 L (13.0-17.5) gm/dL Hct 30.9 L (39.0-53.0) % MCV 105.4 H (80.0-100.0) fL RDW 22.3 H (11.5-15.5) % Plt Count 130 L (150-450) k/uL Sodium 134 L (137-145) mmol/L Chloride 97 L (98-107) mmol/L BUN 98 H* (9-20) mg/dL Creatinine 2.00 H (0.66-1.25) mg/dL Calcium 8.2 L (8.4-10.2) mg/dL Assessment and Plan Plan: 1. Acute systolic and diastolic heart failure. Continue patient on atenolol 25 mg orally once every day, start the patient on Lasix 40 mg IV twice a day, monitor the patient input and output and daily weight. Zaroxolyn ordered. Repeat CXR. 2. Acute kidney injury and top of chronic kidney disease stage III. Monitor the patient CMP, magnesium, phosphorus, patient could not tolerate IV fluid because of significant diastolic and systolic heart failure, nephrology consultation was obtained. 3. Paroxysmal atrial fibrillation. Continue atenolol 25 mg orally twice every day, continue aspirin 81 mg orally once every day, patient is not a candidate for anticoagulation because of the risk of bleeding. 4. History of locally advanced pancreatic cancer post 7 cycles of Gemzar, last chemotherapy was in March [address] Beavers. 5. History of prostate cancer post radiation. Currently in remission. 6. GERD with esophagitis. Continue Nexium 40 mg orally once every day. 7. Bilateral lower extremity edema secondary to combination of systolic and diastolic heart failure along with protein calorie malnutrition and worsening renal failure. Continue Louis wrap, continue Lasix 40 mg orally once every day. 8. Vitamin D deficiency. Continue vitamin D supplement. 9. Osteoarthritis. Stable. 10. DVT prophylaxis. Heparin 5000 units subcutaneously every 12 hours. 11. GI prophylaxis. Continue Nexium 40 mg orally once every day. 12. ALLERGIC rhinitis. Continue Singulair 10 mg orally at bedtime. 13. Severe protein calorie malnutrition. Continue Ensure 14. Leukopenia. chemotherapy induced post G-CSF. 15. Patient is DO NOT RESUSCITATE. 16. rack room worker consult, physical therapy consult, patient will need to be placed at [facility] on , Impression and plan of care have been directed as dictated by the signing physician. Snow Ferguson nurse practitioner acting as scribe for signing physician. Time with Patient: Greater than 30
--- NOTE | 2016-03-28 15:22 | PN ---
Patient is seen for followup for chronic kidney disease, CHF and acute kidney injury, mainly cardiorenal. Patient's volume status has improved. He states he is feeling better and there are plans for discharge today. Renal function has been fairly stable during his hospitalization, with serum creatinine staying at 2 mg/dL. On examination today, blood pressure is 104/63, heart rate 76 per minute. He is afebrile. EXAMINATION OF THE HEART: S1 and S2. EXAMINATION OF THE LUNGS: Bilateral breath sounds are heard. ABDOMEN: Soft, nontender. Examination of lower extremities shows improvement in edema. SOFTWARE CONFIGURATION MANAGER exam is grossly intact. Labs show sodium 134, potassium 3.8; BUN 98, serum creatinine 2.0. Hemoglobin 10.1 g/dL. ASSESSMENT: 1. Chronic kidney disease, NKF stage III, with baseline creatinine about 1.5 to 1.7 mg/dL. 2. Acute kidney injury, mostly cardiorenal, with stable renal function with diuresis during hospitalization. 3. Volume overload, currently improved, maintained on IV Lasix and small dose of Zaroxolyn. 4. History of pancreatic cancer, on chemotherapy. 5. Paroxysmal atrial fibrillation with fairly controlled rate. 6. History of prostatic carcinoma, status post radiation. PLAN: The patient is stable for discharge and followup as outpatient for CKD.
[2016-03-28] MEDS: ATORVASTATIN 10 MG TAB PO SCH (21:56)
[2016-03-28] MEDS: DONEPEZIL 5 MG TAB PO SCH (21:56)
[2016-03-29] MEDS: IPRATROPIUM-ALBUTEROL 3 ML NEB INHALATION SCH ×3 (07:08→19:20)
[2016-03-29] MEDS: BUDESONIDE 0.5 MG/2 ML NEBU INHALATION SCH ×2 (07:08→19:20)
[2016-03-29] MEDS: MONTELUKAST 10 MG TAB PO SCH (08:13)
[2016-03-29] MEDS: FUROSEMIDE 10 MG/ML 4 ML VIAL IV SCH ×3 (08:13→23:19)
[2016-03-29] MEDS: ASPIRIN 81 MG CHEW PO SCH (08:13)
[2016-03-29] MEDS: ISOSORBIDE MONONITRATE ER 15 MG TAB PO SCH (08:13)
[2016-03-29] MEDS: PANTOPRAZOLE 40 MG TABLET PO SCH (08:13)
[2016-03-29] MEDS: POTASSIUM CHLORIDE ER 20 MEQ TAB.ER PO SCH (08:13)
[2016-03-29] MEDS: ATENOLOL 25 MG TAB PO SCH ×2 (08:13→21:07)
[2016-03-29] MEDS: LACTOBACILLUS ACIDOPH & BULGAR 1 EACH PACKET PO SCH (08:13)
--- NOTE | 2016-03-29 09:04 | P.PN ---
Subjective Bright is doing well. He complains of scrotal edema but breathing is much better. Objective - Vital Signs Vital signs: Vital Signs Temp 97.3 F L 03/29/16 07:00 Pulse 80 03/29/16 07:20 Resp 18 03/29/16 07:00 BP 98/56 03/29/16 07:00 Pulse Ox 95 03/29/16 07:00 Intake & Output 03/28/16 03/29/16 03/29/16 18:59 06:59 18:59 Intake Total 118 254 Output Total 477 250 Balance -359 4 Weight 92 kg 93.5 kg Intake: IV 14 Lasix ivp 4 saline flush 10 Oral 118 240 Output: Urine 475 250 Stool 2 Other: Voiding Method Urinal Urinal # Voids 1 3 # Bowel Movements 1 - Constitutional General appearance: Present: cooperative, no acute distress - Respiratory Respiratory: bilateral: CTA - Cardiovascular Rhythm: regular Heart sounds: normal: S1, S2 - Peripheral edema leg Peripheral Edema: bilateral: 2+ - Gastrointestinal General gastrointestinal: Present: soft - Genitourinary Male genitourinary: scrotal edema - Labs CBC & Chem 7: 03/28/16 05:56 03/28/16 05:56 Assessment and Plan Plan: Assessment/Plan #1. Nonoliguric acute kidney injury secondary to cardiorenal syndrome. --Renal function stable. no BMP for today. #2. Chronic kidney disease stage III with baseline creatinine in the range of 1.5-1.7. #3. Volume overload. Gradually improving. --Will continue IV lasix 40mg tid and metolazone.
--- NOTE | 2016-03-29 10:17 | P.PN ---
Subjective This is an 89-year-old male one of Dr. Maza's patient with a previous medical history significant for hypertension and hypertensive cardio vascular disease, hyperkalemia, history of prostate cancer in the past, that was diagnosed a few years back underwent radiation therapy at [facility], has been in remission and was recently diagnosed on June 2015 of having locally advanced pancreatic cancer that has been under the care of Dr. Jimenez for which she did receive about 7 cycles of Gemzar, patient was recently hospitalized at [facility] because of chest pain and increased shortness breath he was diagnosed with non-ST elevation [place] and paroxysmal atrial fibrillation, at that time he was placed on atenolol 25 mg orally twice every day as well as aspirin and he was placed on heparin drip and the patient prognosis is poor so he did not go for any invasive procedure due to his advanced pancreatic cancer. Patient was discharged and he followed up with Dr. Celis as a matter of fact today and the patient ended up coming to the emergency department because of increased weakness in both lower x-rays and increased shortness of breath, patient had a chest x-ray in the ER that showed congestive heart failure and he does appear to have a significant acute kidney injury and top of chronic kidney disease and the patient legs were +4 pitting edema. Patient was admitted to the hospital initially was placed on the normal saline at 50 mL an hour for few hours and subsequently was taken off that and he was placed on Lasix 40 mg orally once every day he will also was started on Lasix 40 mg IV push 1 and a nephrology consultation as well as hematology oncology consultation was obtained. 2/3: Repeat labs show a WBC of 1.7, hemoglobin 9.9, platelet count 153. BUN 94 and creatinine 2.2. Sodium 133 and potassium 4.7. Repeat chest x-ray shows overall stable findings of cardiomegaly and small right greater than left pleural effusions and mild central vascular congestion suggesting heart failure exacerbation. Additional focal infiltrate and/or atelectasis is felt present in the right lung base. Patient has been seen by nephrology. IV fluids to saline lock and continue oral Lasix. He did receive one additional dose of IV lasix this morning. We are changing oral lasix to IV. 2/4: Patient is feeling weak, he continued to to have some coughing minimal phlegm production, he continues to have some swelling in both lower extremities although preoperative 5 however is a bit better from yesterday 03/23: Patient is sitting up in a recliner he continues to be somewhat short of breath, he continues to have some congested cough, he is feeling about the same , no new changes in his treatment we will continue same management. 03/24: WBC count 14.7, BUN 18 creatinine 2.1. CA 19-9 141.3. He is currently on Lasix 40 mg IV every 12 hours. Echocardiogram report pending. Patient states his breathing is only a little better. 03/25: White count 13.7. BUN , creatinine . Patient remains on same dose of Lasix 40 mg IV every 12 hours. He continues to have significant edema. Zaroxolyn added and Imdur decreased. Repeat CXR ordered. 03/26: hemoglobin 10.5, platelet count 117, BUN 91 and creatinine 2.03. Patient is continued on Lasix 40 mg every 8 hours. He did start Zaroxolyn this morning. Patient did walk with physical therapy this morning. Anticipate discharge tomorrow to [facility]. 03/27:Patient complains of feeling tired and did not sleep all night because his neighbor had his TV on. HGB 10.4, BUN 94 and creatinine 2.03. Currently on IV Lasix 40 mg every 8 hours which will be switched over to oral. Patient was prepared for discharge to [facility] but awaiting authorization from his insurance company. 03/29: Patient was not discharged to [facility] on March 28 as we are still waiting for insurance authorization. Laboratory studies from yesterday showed a BUN of 98 and creatinine 2.00, sodium 134. WBC was 3.9, hemoglobin 10.1, platelet count 1:30 which is improved. His breathing status is stable. He is complaining of extreme weakness. Await discharge to [facility] for Thursday. Objective - Vital Signs Vital signs: Vital Signs Temp 97.3 F L 03/29/16 07:00 Pulse 80 03/29/16 07:20 Resp 18 03/29/16 07:00 BP 98/56 03/29/16 07:00 Pulse Ox 95 03/29/16 07:00 Intake & Output 03/28/16 03/29/16 03/29/16 18:59 06:59 18:59 Intake Total 118 254 Output Total 477 250 Balance -359 4 Weight 92 kg 93.5 kg Intake: IV 14 Lasix ivp 4 saline flush 10 Oral 118 240 Output: Urine 475 250 Stool 2 Other: Voiding Method Urinal Urinal # Voids 1 3 # Bowel Movements 1 - Exam General appearance: average body habitus, mild distress - EENT Eyes: anicteric sclerae, PERRLA, no ptosis, no scleral icterus, normal appearance ENT: hard of hearing, normal oropharynx, no thrush Ears: bilateral: normal - Neck Neck: no lymphadenopathy, normal ROM, no rigidity, no stridor, no thyromegaly Carotids: bilateral: upstroke delayed Thyroid: bilateral: normal size - Respiratory Respiratory: bilateral: diminished, rales, rhonchi, wheezing, prolonged expiration, negative: dullness - Cardiovascular Rhythm: irregularly irregular Heart sounds: normal: S1, S2 Abnormal Heart Sounds: systolic murmur, no rub, no click - Gastrointestinal General gastrointestinal: normal bowel sounds, soft, no splenomegaly, tenderness , no umbilical hernia, no ventral hernia - Genitourinary Male genitourinary: scrotal edema - Integumentary Integumentary: normal, normal turgor, pale - Musculoskeletal Musculoskeletal: generalized weakness, strength equal bilaterally - Psychiatric Psychiatric: A&O x's 3, appropriate affect, intact judgment & insight - Labs CBC & Chem 7: 03/28/16 05:56 03/28/16 05:56 Assessment and Plan Plan: 1. Acute systolic and diastolic heart failure. Continue patient on atenolol 25 mg orally once every day, start the patient on Lasix 40 mg IV every 8 hours, monitor the patient input and output and daily weight. Zaroxolyn ordered. Repeat CXR. 2. Acute kidney injury and top of chronic kidney disease stage III. Monitor the patient CMP, magnesium, phosphorus, patient could not tolerate IV fluid because of significant diastolic and systolic heart failure, nephrology consultation was obtained. 3. Paroxysmal atrial fibrillation. Continue atenolol 25 mg orally twice every day, continue aspirin 81 mg orally once every day, patient is not a candidate for anticoagulation because of the risk of bleeding. 4. History of locally advanced pancreatic cancer post 7 cycles of Gemzar, last chemotherapy was in March [address] Beavers. 5. History of prostate cancer post radiation. Currently in remission. 6. GERD with esophagitis. Continue Nexium 40 mg orally once every day. 7. Bilateral lower extremity edema secondary to combination of systolic and diastolic heart failure along with protein calorie malnutrition and worsening renal failure. Continue Louis wrap, continue Lasix 40 mg orally once every day. 8. Vitamin D deficiency. Continue vitamin D supplement. 9. Osteoarthritis. Stable. 10. DVT prophylaxis. Heparin 5000 units subcutaneously every 12 hours. 11. GI prophylaxis. Continue Nexium 40 mg orally once every day. 12. ALLERGIC rhinitis. Continue Singulair 10 mg orally at bedtime. 13. Severe protein calorie malnutrition. Continue Ensure 14. Leukopenia. chemotherapy induced post G-CSF. 15. Patient is DO NOT RESUSCITATE. 16. renal social worker consult, physical therapy consult, patient will need to be placed at [facility] on Thursday, Impression and plan of care have been directed as dictated by the signing physician. Snow Ferguson nurse practitioner acting as scribe for signing physician. Time with Patient: Greater than 30
--- NOTE | 2016-03-29 10:59 | US ---
EXAMINATION TYPE: US venous doppler duplex LE RT DATE OF EXAM: 03/29/2016 9:36 AM COMPARISON: NONE CLINICAL HISTORY: pain RLE calf. SIDE PERFORMED: Right VESSELS IMAGED: External Iliac Vein (EIV) Common Femoral Vein Deep Femoral Vein Greater Saphenous Vein * Femoral Vein Popliteal Vein Small Saphenous Vein * Proximal Calf Veins (* superficial vessels) TECHNOLOGIST IMPRESSION: wnl. Incidental finding complex area in right popliteal fossa possible bake r cyst. Right Leg: Appears negative for DVT IMPRESSION: 1. No deep venous thrombosis right lower extremity recent ultrasound findings
[2016-03-29] MEDS: ENOXAPARIN 30 MG/0.3 ML SYRINGE SQ SCH (11:42)
[2016-03-29] MEDS: CYANOCOBALAMIN 500 MCG TAB PO SCH (11:42)
[2016-03-29] MEDS: ATORVASTATIN 10 MG TAB PO SCH (21:07)
[2016-03-29] MEDS: DONEPEZIL 5 MG TAB PO SCH (21:07)
[2016-03-30 07:16] LABS: Anisocytosis Moderate; CH 33.9; CHCM 32.7; HCT 29.8 % (39.0-53.0); HDW 2.76; HGB 9.7 gm/dL (13.0-17.5); MCHC 32.6 g/dL (31.0-37.0); MCV 104.3 fL (80.0-100.0); Macrocytosis Marked; Mean Platelet Volume 8.1; RBC 2.86 m/uL (4.30-5.90); RDW 22.1 % (11.5-15.5); WBC 2.9 k/uL (3.8-10.6)
[2016-03-30 07:41] LABS: Potassium 3.4 mmol/L (3.5-5.1)
[2016-03-30] MEDS: FUROSEMIDE 10 MG/ML 4 ML VIAL IV SCH (08:06)
[2016-03-30] MEDS: POTASSIUM CHLORIDE ER 20 MEQ TAB.ER PO SCH (08:06)
[2016-03-30] MEDS: ASPIRIN 81 MG CHEW PO SCH (08:06)
[2016-03-30] MEDS: ENOXAPARIN 30 MG/0.3 ML SYRINGE SQ SCH (08:06)
[2016-03-30] MEDS: ISOSORBIDE MONONITRATE ER 15 MG TAB PO SCH (08:06)
[2016-03-30] MEDS: PANTOPRAZOLE 40 MG TABLET PO SCH (08:06)
[2016-03-30] MEDS: ATENOLOL 25 MG TAB PO SCH ×2 (08:07→19:52)
[2016-03-30] MEDS: MONTELUKAST 10 MG TAB PO SCH (08:07)
[2016-03-30] MEDS: LACTOBACILLUS ACIDOPH & BULGAR 1 EACH PACKET PO SCH (08:07)
[2016-03-30] MEDS: traMADol 50 MG TAB PO PRN ×2 (08:21→19:51)
[2016-03-30] MEDS: BUDESONIDE 0.5 MG/2 ML NEBU INHALATION SCH ×2 (09:07→22:18)
[2016-03-30] MEDS: IPRATROPIUM-ALBUTEROL 3 ML NEB INHALATION SCH ×3 (09:07→22:18)
--- NOTE | 2016-03-30 10:18 | P.PN ---
Subjective Bright is doing well. No longer SOb. Has been on IV lasix and metolazone for volume overload. Now on ambient air. Objective - Vital Signs Vital signs: Vital Signs Temp 98.1 F 03/30/16 07:00 Pulse 94 03/30/16 09:20 Resp 18 03/30/16 07:00 BP 105/60 03/30/16 07:00 Pulse Ox 91 L 03/30/16 07:00 Intake & Output 03/29/16 03/30/16 03/30/16 18:59 06:59 18:59 Intake Total 230 1080 Output Total 275 Balance 230 805 Weight 92.5 kg Intake: Oral 230 1080 Output: Urine 275 Other: Voiding Method Urinal Urinal # Voids 2 # Bowel Movements 1 - Constitutional General appearance: Present: cooperative, no acute distress - Respiratory Respiratory: bilateral: diminished - Cardiovascular Rhythm: regular Heart sounds: normal: S1, S2 - Peripheral edema leg Peripheral Edema: bilateral: 1+ - Gastrointestinal General gastrointestinal: Present: normal bowel sounds - Genitourinary Male genitourinary: scrotal edema - Labs CBC & Chem 7: 03/30/16 06:43 03/30/16 06:43 Labs: Abnormal Lab Results - Last 24 Hours (Table) 03/30/16 03/30/16 Range/Units 06:43 06:43 WBC 2.9 L (3.8-10.6) k/uL RBC 2.86 L (4.30-5.90) m/uL Hgb 9.7 L (13.0-17.5) gm/dL Hct 29.8 L (39.0-53.0) % MCV 104.3 H (80.0-100.0) fL RDW 22.1 H (11.5-15.5) % Sodium 135 L (137-145) mmol/L Potassium 3.4 L (3.5-5.1) mmol/L Chloride 97 L (98-107) mmol/L BUN 102 H* (9-20) mg/dL Creatinine 1.98 H (0.66-1.25) mg/dL Calcium 8.0 L (8.4-10.2) mg/dL Assessment and Plan Plan: Assessment/Plan #1. Nonoliguric acute kidney injury secondary to cardiorenal syndrome. --Renal function stable. --will change lasix to 40mg bid PO. --Stop metolazone. #2. Chronic kidney disease stage III with baseline creatinine in the range of 1.5-1.7. #3. Volume overload--overall much better. --On ambient air.
[2016-03-30] MEDS: DOCUSATE 100 MG CAP PO SCH ×2 (11:19→19:51)
[2016-03-30] MEDS: CYANOCOBALAMIN 500 MCG TAB PO SCH (11:20)
--- NOTE | 2016-03-30 12:20 | P.PN ---
Subjective This is an 89-year-old male one of Dr. Maza's patient with a previous medical history significant for hypertension and hypertensive cardio vascular disease, hyperkalemia, history of prostate cancer in the past, that was diagnosed a few years back underwent radiation therapy at [facility], has been in remission and was recently diagnosed on June 2015 of having locally advanced pancreatic cancer that has been under the care of Dr. Jimenez for which she did receive about 7 cycles of Gemzar, patient was recently hospitalized at [facility] because of chest pain and increased shortness breath he was diagnosed with non-ST elevation [place] and paroxysmal atrial fibrillation, at that time he was placed on atenolol 25 mg orally twice every day as well as aspirin and he was placed on heparin drip and the patient prognosis is poor so he did not go for any invasive procedure due to his advanced pancreatic cancer. Patient was discharged and he followed up with Dr. Celis as a matter of fact today and the patient ended up coming to the emergency department because of increased weakness in both lower x-rays and increased shortness of breath, patient had a chest x-ray in the ER that showed congestive heart failure and he does appear to have a significant acute kidney injury and top of chronic kidney disease and the patient legs were +4 pitting edema. Patient was admitted to the hospital initially was placed on the normal saline at 50 mL an hour for few hours and subsequently was taken off that and he was placed on Lasix 40 mg orally once every day he will also was started on Lasix 40 mg IV push 1 and a nephrology consultation as well as hematology oncology consultation was obtained. 2/3: Repeat labs show a WBC of 1.7, hemoglobin 9.9, platelet count 153. BUN 94 and creatinine 2.2. Sodium 133 and potassium 4.7. Repeat chest x-ray shows overall stable findings of cardiomegaly and small right greater than left pleural effusions and mild central vascular congestion suggesting heart failure exacerbation. Additional focal infiltrate and/or atelectasis is felt present in the right lung base. Patient has been seen by nephrology. IV fluids to saline lock and continue oral Lasix. He did receive one additional dose of IV lasix this morning. We are changing oral lasix to IV. 2/4: Patient is feeling weak, he continued to to have some coughing minimal phlegm production, he continues to have some swelling in both lower extremities although preoperative 5 however is a bit better from yesterday 03/23: Patient is sitting up in a recliner he continues to be somewhat short of breath, he continues to have some congested cough, he is feeling about the same , no new changes in his treatment we will continue same management. 03/24: WBC count 14.7, BUN 18 creatinine 2.1. CA 19-9 141.3. He is currently on Lasix 40 mg IV every 12 hours. Echocardiogram report pending. Patient states his breathing is only a little better. 03/25: White count 13.7. BUN , creatinine . Patient remains on same dose of Lasix 40 mg IV every 12 hours. He continues to have significant edema. Zaroxolyn added and Imdur decreased. Repeat CXR ordered. 03/26: hemoglobin 10.5, platelet count 117, BUN 91 and creatinine 2.03. Patient is continued on Lasix 40 mg every 8 hours. He did start Zaroxolyn this morning. Patient did walk with physical therapy this morning. Anticipate discharge tomorrow to [facility]. 03/27:Patient complains of feeling tired and did not sleep all night because his neighbor had his TV on. HGB 10.4, BUN 94 and creatinine 2.03. Currently on IV Lasix 40 mg every 8 hours which will be switched over to oral. Patient was prepared for discharge to [facility] but awaiting authorization from his insurance company. 03/29: Patient was not discharged to [facility] on March 28 as we are still waiting for insurance authorization. Laboratory studies from yesterday showed a BUN of 98 and creatinine 2.00, sodium 134. WBC was 3.9, hemoglobin 10.1, platelet count 1:30 which is improved. His breathing status is stable. He is complaining of extreme weakness. Await discharge to [facility] for Thursday. 03/30: Patient is complaining of constipation for which Colace has been added. Hemoglobin 9.7, BUN 102 and creatinine 1.98. Potassium 3. form will be replaced. Metolazone has been discontinued by nephrology. Currently on Lasix 40 mg twice daily. Objective - Vital Signs Vital signs: Vital Signs Temp 98.1 F 03/30/16 07:00 Pulse 94 03/30/16 09:20 Resp 18 03/30/16 07:00 BP 105/60 03/30/16 07:00 Pulse Ox 91 L 03/30/16 07:00 Intake & Output 03/29/16 03/30/16 03/30/16 18:59 06:59 18:59 Intake Total 230 1080 Output Total 275 Balance 230 805 Weight 92.5 kg Intake: Oral 230 1080 Output: Urine 275 Other: Voiding Method Urinal Urinal # Voids 2 # Bowel Movements 1 - Exam General appearance: average body habitus, mild distress - EENT Eyes: anicteric sclerae, PERRLA, no ptosis, no scleral icterus, normal appearance ENT: hard of hearing, normal oropharynx, no thrush Ears: bilateral: normal - Neck Neck: no lymphadenopathy, normal ROM, no rigidity, no stridor, no thyromegaly Carotids: bilateral: upstroke delayed Thyroid: bilateral: normal size - Respiratory Respiratory: bilateral: diminished, rales, rhonchi, wheezing, prolonged expiration, negative: dullness - Cardiovascular Rhythm: irregularly irregular Heart sounds: normal: S1, S2 Abnormal Heart Sounds: systolic murmur, no rub, no click - Gastrointestinal General gastrointestinal: normal bowel sounds, soft, no splenomegaly, tenderness , no umbilical hernia, no ventral hernia - Genitourinary Male genitourinary: scrotal edema - Integumentary Integumentary: normal, normal turgor, pale - Musculoskeletal Musculoskeletal: generalized weakness, strength equal bilaterally - Psychiatric Psychiatric: A&O x's 3, appropriate affect, intact judgment & insight - Labs CBC & Chem 7: 03/30/16 06:43 03/30/16 06:43 Labs: Abnormal Lab Results - Last 24 Hours (Table) 03/30/16 03/30/16 Range/Units 06:43 06:43 WBC 2.9 L (3.8-10.6) k/uL RBC 2.86 L (4.30-5.90) m/uL Hgb 9.7 L (13.0-17.5) gm/dL Hct 29.8 L (39.0-53.0) % MCV 104.3 H (80.0-100.0) fL RDW 22.1 H (11.5-15.5) % Sodium 135 L (137-145) mmol/L Potassium 3.4 L (3.5-5.1) mmol/L Chloride 97 L (98-107) mmol/L BUN 102 H* (9-20) mg/dL Creatinine 1.98 H (0.66-1.25) mg/dL Calcium 8.0 L (8.4-10.2) mg/dL Assessment and Plan Plan: 1. Acute systolic and diastolic heart failure. Continue patient on atenolol 25 mg orally once every day, start the patient on Lasix 40 mg bid, monitor the patient input and output and daily weight. 2. Acute kidney injury and top of chronic kidney disease stage III. Monitor the patient CMP, magnesium, phosphorus, patient could not tolerate IV fluid because of significant diastolic and systolic heart failure, nephrology consultation was obtained. 3. Paroxysmal atrial fibrillation. Continue atenolol 25 mg orally twice every day, continue aspirin 81 mg orally once every day, patient is not a candidate for anticoagulation because of the risk of bleeding. 4. History of locally advanced pancreatic cancer post 7 cycles of Gemzar, last chemotherapy was in March [address] Beavers. 5. History of prostate cancer post radiation. Currently in remission. 6. GERD with esophagitis. Continue Nexium 40 mg orally once every day. 7. Bilateral lower extremity edema secondary to combination of systolic and diastolic heart failure along with protein calorie malnutrition and worsening renal failure. Continue Louis wrap, continue Lasix 40 mg orally once every day. 8. Vitamin D deficiency. Continue vitamin D supplement. 9. Osteoarthritis. Stable. 10. DVT prophylaxis. Heparin 5000 units subcutaneously every 12 hours. 11. GI prophylaxis. Continue Nexium 40 mg orally once every day. 12. ALLERGIC rhinitis. Continue Singulair 10 mg orally at bedtime. 13. Severe protein calorie malnutrition. Continue Ensure 14. Leukopenia. chemotherapy induced post G-CSF. 15. Patient is DO NOT RESUSCITATE. 16. drug worker consult, physical therapy consult, patient will need to be placed at [facility] on Thursday, Impression and plan of care have been directed as dictated by the signing physician. Snow Ferguson nurse practitioner acting as scribe for signing physician. Time with Patient: Greater than 30
--- NOTE | 2016-03-30 12:25 | P.DS ---
Providers Date of admission: 03/19/16 21:18 Expected date of discharge: 03/31/16 Attending physician: Shawna Maza Consults: 03/20/16 14:59 Consult Physician Routine Consulting Provider: Benji Pyle Consult Reason/Comments: pancreatic cancer Do you want consulting provider notified?: Yes Primary care physician: Shawna Maza [facility] Course: This is an 89-year-old male one of Dr. Maza's patient with a previous medical history significant for hypertension and hypertensive cardio vascular disease, hyperkalemia, history of prostate cancer in the past, that was diagnosed a few years back underwent radiation therapy at [facility], has been in remission and was recently diagnosed on June 2015 of having locally advanced pancreatic cancer that has been under the care of Dr. Jimenez for which she did receive about 7 cycles of Gemzar, patient was recently hospitalized at [facility] because of chest pain and increased shortness breath he was diagnosed with non-ST elevation [place] and paroxysmal atrial fibrillation, at that time he was placed on atenolol 25 mg orally twice every day as well as aspirin and he was placed on heparin drip and the patient prognosis is poor so he did not go for any invasive procedure due to his advanced pancreatic cancer. Patient was discharged and he followed up with Dr. Celis as a matter of fact today and the patient ended up coming to the emergency department because of increased weakness in both lower x-rays and increased shortness of breath, patient had a chest x-ray in the ER that showed congestive heart failure and he does appear to have a significant acute kidney injury and top of chronic kidney disease and the patient legs were +4 pitting edema. Patient was admitted to the hospital initially was placed on the normal saline at 50 mL an hour for few hours and subsequently was taken off that and he was placed on Lasix 40 mg orally once every day he will also was started on Lasix 40 mg IV push 1 and a nephrology consultation as well as hematology oncology consultation was obtained. 2/3: Repeat labs show a WBC of 1.7, hemoglobin 9.9, platelet count 153. BUN 94 and creatinine 2.2. Sodium 133 and potassium 4.7. Repeat chest x-ray shows overall stable findings of cardiomegaly and small right greater than left pleural effusions and mild central vascular congestion suggesting heart failure exacerbation. Additional focal infiltrate and/or atelectasis is felt present in the right lung base. Patient has been seen by nephrology. IV fluids to saline lock and continue oral Lasix. He did receive one additional dose of IV lasix this morning. We are changing oral lasix to IV. 03/22: Patient is feeling weak, he continued to to have some coughing minimal phlegm production, he continues to have some swelling in both lower extremities although preoperative 5 however is a bit better from yesterday 03/23: Patient is sitting up in a recliner he continues to be somewhat short of breath, he continues to have some congested cough, he is feeling about the same , no new changes in his treatment we will continue same management. 03/24: WBC count 14.7, BUN 18 creatinine 2.1. CA 19-9 141.3. He is currently on Lasix 40 mg IV every 12 hours. Echocardiogram report pending. Patient states his breathing is only a little better. 03/25: White count 13.7. BUN , creatinine . Patient remains on same dose of Lasix 40 mg IV every 12 hours. He continues to have significant edema. Zaroxolyn added and Imdur decreased. Repeat CXR ordered. 03/26: hemoglobin 10.5, platelet count 117, BUN 91 and creatinine 2.03. Patient is on Lasix 40 mg every 8 hours. He did start Zaroxolyn this morning. Patient did walk with physical therapy this morning. Anticipate discharge tomorrow to [facility]. 03/27:Patient complains of feeling tired and did not sleep all night because his neighbor had his TV on. HGB 10.4, BUN 94 and creatinine 2.03. Currently on IV Lasix 40 mg every 8 hours which will be switched over to oral. Patient will be discharged home today in stable condition. 03/29: Patient was not discharged to [facility] on March 28 as we are still waiting for insurance authorization. Laboratory studies from yesterday showed a BUN of 98 and creatinine 2.00, sodium 134. WBC was 3.9, hemoglobin 10.1, platelet count 1:30 which is improved. His breathing status is stable. He is complaining of extreme weakness. Await discharge to [facility] for Thursday. 03/30: Patient is complaining of constipation for which Colace has been added. Hemoglobin 9.7, BUN 102 and creatinine 1.98. Potassium 3.4 and will be replaced. Metolazone has been discontinued by nephrology. Currently on Lasix 40 mg twice daily. Patient will be discharge to [facility] tomorrow morning in stable condition. New medication reconciliation on the chart. Discharge Diagnoses: 1. Acute systolic and diastolic heart failure. 2. Acute kidney injury due to cardiorenal and top of chronic kidney disease stage III. 3. Paroxysmal atrial fibrillation. 4. History of locally advanced pancreatic cancer post 7 cycles of Gemzar, last chemotherapy was in March 13 2016. 5. History of prostate cancer post radiation. Currently in remission. 6. GERD with esophagitis. 7. Bilateral lower extremity edema secondary to combination of systolic and diastolic heart failure along with protein calorie malnutrition and worsening renal failure. 8. Vitamin D deficiency. 9. Osteoarthritis. 10. ALLERGIC rhinitis. 11. Severe protein calorie malnutrition. Continue Ensure 12. Leukopenia. chemotherapy induced post G-CSF. Discharge Plan: [facility] on under the care of Dr. Maza Impression and plan of care have been directed as dictated by the signing physician. Snow Ferguson nurse practitioner acting as scribe for signing physician. Patient Condition at Discharge: Good Plan - Discharge Summary New Discharge Prescriptions: Melatonin 6 mg PO HS #60 tablet Promethaz-Cod 6.25-10 mg/5 ml [Phenergan with Codeine] 5 ml PO Q6H PRN #100 ml PRN Reason: Cold Symptoms traMADol HCl [Ultram] 50 mg PO QID PRN #120 tab PRN Reason: Pain Discharge Medication List Atenolol [Tenormin] 25 mg PO BID 05/18/15 [History] Atorvastatin [Lipitor] 10 mg PO HS 05/18/15 [History] Donepezil [Aricept] 5 mg PO HS 05/18/15 [History] L.acidoph,Paracasei, B.lactis [Probiotic] 1 cap PO DAILY 05/18/15 [History] Montelukast Sodium [Singulair] 10 mg PO DAILY 05/18/15 [History] Aspirin [Adult Low Dose Aspirin EC] 81 mg PO DAILY 03/19/16 [History] Esomeprazole Magnesium [NexIUM] 20 mg PO DAILY 03/19/16 [History] Multivitamin [Multivitamins Adult Gummies] 2 tab PO DAILY 03/19/16 [History] Budesonide [Pulmicort] 0.5 mg INHALATION RT-BID nebu 03/27/16 [Rx] Cyanocobalamin [Vitamin B-12] 500 mcg PO DAILY@1200 tab 03/27/16 [Rx] Ipratropium-Albuterol Nebulize [Duoneb 0.5 mg-3 mg/3 ml Soln] 3 ml INHALATION RT -TID ampul.neb 03/27/16 [Rx] Isosorbide Mononitrate ER [Imdur] 15 mg PO DAILY dose 03/27/16 [Rx] Melatonin 6 mg PO HS #60 tablet 03/27/16 [Rx] Potassium Chloride ER [K-Dur 20] 20 meq PO DAILY tab.er.prt 03/27/16 [Rx] Promethaz-Cod 6.25-10 mg/5 ml [Phenergan with Codeine] 5 ml PO Q6H PRN #100 ml 03/27/16 [Rx] traMADol HCl [Ultram] 50 mg PO QID PRN #120 tab 03/27/16 [Rx] Furosemide [Lasix] 40 mg PO BID #0 03/30/16 [Rx] Follow up Appointment(s)/Referral(s): Mary Nugent MD [STAFF PHYSICIAN] - 1 Week Shawna Maza MD [Primary Care Provider] - 1 Week Nico Nguyễn MD [STAFF PHYSICIAN] - 2 Weeks Discharge Disposition: TRANSFER TO SNF/ECF
[2016-03-30] MEDS: FUROSEMIDE 40 MG TAB PO SCH (16:19)
[2016-03-30] MEDS: DONEPEZIL 5 MG TAB PO SCH (19:52)
[2016-03-30] MEDS: ATORVASTATIN 10 MG TAB PO SCH (19:52)
[2016-03-31] MEDS: IPRATROPIUM-ALBUTEROL 3 ML NEB INHALATION SCH ×3 (07:16→18:46)
[2016-03-31] MEDS: BUDESONIDE 0.5 MG/2 ML NEBU INHALATION SCH ×2 (07:16→18:46)
[2016-03-31 08:21] LABS: Calcium 8.3 mg/dL (8.4-10.2); Potassium 3.5 mmol/L (3.5-5.1)
[2016-03-31] MEDS: LACTOBACILLUS ACIDOPH & BULGAR 1 EACH PACKET PO SCH (10:08)
[2016-03-31] MEDS: ENOXAPARIN 30 MG/0.3 ML SYRINGE SQ SCH (10:08)
[2016-03-31] MEDS: ATENOLOL 25 MG TAB PO SCH ×2 (10:08→21:03)
[2016-03-31] MEDS: ISOSORBIDE MONONITRATE ER 15 MG TAB PO SCH (10:08)
[2016-03-31] MEDS: POTASSIUM CHLORIDE ER 20 MEQ TAB.ER PO SCH (10:08)
[2016-03-31] MEDS: ASPIRIN 81 MG CHEW PO SCH (10:09)
[2016-03-31] MEDS: MONTELUKAST 10 MG TAB PO SCH (10:09)
[2016-03-31] MEDS: FUROSEMIDE 40 MG TAB PO SCH ×2 (10:09→16:19)
[2016-03-31] MEDS: PANTOPRAZOLE 40 MG TABLET PO SCH (10:09)
[2016-03-31] MEDS: DOCUSATE 100 MG CAP PO SCH ×2 (10:09→20:24)
[2016-03-31] MEDS: CYANOCOBALAMIN 500 MCG TAB PO SCH (12:48)
[2016-03-31] MEDS: DONEPEZIL 5 MG TAB PO SCH (20:24)
[2016-03-31] MEDS: ATORVASTATIN 10 MG TAB PO SCH (20:24)
[2016-03-31 22:59] VITALS: RESP 18
[2016-04-01 07:47] VITALS: BP 99/62; PULSE 94; TEMP 97
[2016-04-01] MEDS: BUDESONIDE 0.5 MG/2 ML NEBU INHALATION SCH (08:00)
[2016-04-01] MEDS: IPRATROPIUM-ALBUTEROL 3 ML NEB INHALATION SCH (08:01)
[2016-04-01 09:12] LABS: Calcium 8.3 mg/dL (8.4-10.2); Potassium 4.1 mmol/L (3.5-5.1)
[2016-04-01] MEDS: DOCUSATE 100 MG CAP PO SCH (09:18)
[2016-04-01] MEDS: traMADol 50 MG TAB PO PRN (09:29)
[2016-04-01] MEDS: MONTELUKAST 10 MG TAB PO SCH (09:31)
[2016-04-01] MEDS: POTASSIUM CHLORIDE ER 20 MEQ TAB.ER PO SCH (09:31)
[2016-04-01] MEDS: LACTOBACILLUS ACIDOPH & BULGAR 1 EACH PACKET PO SCH (09:31)
[2016-04-01] MEDS: ENOXAPARIN 30 MG/0.3 ML SYRINGE SQ SCH (09:31)
[2016-04-01] MEDS: ASPIRIN 81 MG CHEW PO SCH (09:31)
[2016-04-01] MEDS: PANTOPRAZOLE 40 MG TABLET PO SCH (09:31)
[2016-04-01] MEDS: ISOSORBIDE MONONITRATE ER 15 MG TAB PO SCH (09:32)
[2016-04-01] MEDS: ATENOLOL 25 MG TAB PO SCH (09:32)
[2016-04-01] MEDS: FUROSEMIDE 40 MG TAB PO SCH ×2 (10:45→11:03)
== END 2016-04-01 11:40 | DRG 291 ==
LOC: EC 15:47 → 6SEL 21:18 → 5ONC 03-28 20:21
PROVIDERS: ADMIT Internal Medicine; ATTEND Internal Medicine
DX: I13.0 Hypertensive heart and chronic kidney disease with heart failure and stage 1 through stage 4 chronic kidney disease, or unspecified chronic kidney disease (principal); I50.43 Acute on chronic combined systolic (congestive) and diastolic (congestive) heart failure; E43 Unspecified severe protein-calorie malnutrition; N17.9 Acute kidney failure, unspecified; C25.9 Malignant neoplasm of pancreas, unspecified; E11.22 Type 2 diabetes mellitus with diabetic chronic kidney disease; F01.50 Vascular dementia, unspecified severity, without behavioral disturbance, psychotic disturbance, mood disturbance, and anxiety; D70.1 Agranulocytosis secondary to cancer chemotherapy; E86.0 Dehydration; I48.0 Paroxysmal atrial fibrillation; E55.9 Vitamin D deficiency, unspecified; T45.1X5A Adverse effect of antineoplastic and immunosuppressive drugs, initial encounter; N18.3 Chronic kidney disease, stage 3 (moderate); Z68.30 Body mass index [BMI] 30.0-30.9, adult; J30.9 Allergic rhinitis, unspecified; E78.5 Hyperlipidemia, unspecified; F32.9 Major depressive disorder, single episode, unspecified; F41.9 Anxiety disorder, unspecified; H35.30 Unspecified macular degeneration; I25.10 Atherosclerotic heart disease of native coronary artery without angina pectoris; K21.0 Gastro-esophageal reflux disease with esophagitis; M19.90 Unspecified osteoarthritis, unspecified site; Z66 Do not resuscitate; Z96.652 Presence of left artificial knee joint; K59.00 Constipation, unspecified; I25.2 Old myocardial infarction; Z79.82 Long term (current) use of aspirin; Z82.49 Family history of ischemic heart disease and other diseases of the circulatory system; Z82.5 Family history of asthma and other chronic lower respiratory diseases; Z92.3 Personal history of irradiation; Z85.46 Personal history of malignant neoplasm of prostate; Z87.891 Personal history of nicotine dependence
CPT/HCPCS: 36415; 71010; 71020; 72070; 72100; 74176; 80048; 80053; 81003; 82565; 83735; 83880; 84484; 84520; 85025; 85027; 86301; 93005; 93306; 94640; 94760; 99285